=== PATIENT | male | born 1940 | race Caucasian/White ===

== ENCOUNTER → 2021-12-22 13:29 | Outpatient (BNVA) | payer MEDICARE, SELFPAY | PROVIDERS: Family Provider Nurse Practitioner Family; PCP Nurse Practitioner Family; Visit Provider Surgery | DX: Z20.822 Contact with and (suspected) exposure to COVID-19 (principal) | CPT/HCPCS: 87635 ==

== ENCOUNTER 2021-12-26 07:56 | Day surgery (SDC) | payer MEDICARE, SELFPAY ==
[2021-12-23 13:06] VITALS: BMI 22.4
[2021-12-26 08:11] VITALS: BP 166/89; PULSE 79; RESP 16; TEMP 36.3; O2SAT 96
--- NOTE | 2021-12-26 08:19 | W.PM.OPSUD ---
Surgery/Procedure H&P Update DATE OF PROCEDURE: December 26, 2021 DATE H&P PERFORMED: 12/16/21 H&P UPDATE INFORMATION: I have reviewed H&P completed within last 30 days, I have examined patient prior to procedure and No changes to prior documentation PREOP DIAGNOSIS: Bilateral inguinal hernia, umbilical hernia PLANNED PROCEDURE: Operation Date: 12/26/21 09:45 Proposed Procedures p Laparoscopic Inguinal Hernia Repair [id number]/k42.9/k40.20(Bilateral) - Jadon Monte MD s Open Umbilical Hernia Repair(Not Applicable) - Jadon Monte MD
[2021-12-26] MEDS: sodium chloride 0.9% 1,000 ML 30 ML IV (08:29)
--- NOTE | 2021-12-26 08:32 | ECG_ITS ---
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
--- NOTE | 2021-12-26 09:34 | P.MISC_ITS ---
Miscellaneous Note Purpose of Documentation: Event Note: Patient found to have undiagnosed atrial fibrillation upon EKG and palpation of pulse. Will require pre-op clearance from database marketing specialist. Instructed patient to contact his primary care physician for referral
--- NOTE | 2021-12-26 09:57 | PC.NURSE ---
Patient was in Pre-op and an EKG was obtained which found a new onset of A-fib. Dr. Monte and Dr. Linton discussed and determined it would be best to cancel the procedure until a cardiac clearance was done. Surgery clinic contacted for a cardiology referral. Patients IV was then discontinued and patient dressed and was discharged at this time.
--- NOTE | 2021-12-26 13:45 | ANE.PACU2 ---
Inpatient post-anesthesia follow up: Airway intact: Yes Vital signs: Temperature 97.3 F Pulse Rate 79 Respiratory Rate 16 Blood Pressure 166/89 Pulse Oximetry 96 Oxygen Delivery Me thod Room Air Oxygen Flow Rate Fraction of Inspir ed Oxygen Hydration adequate: Yes Nausea and vomiting: No Pain level: 1 Mental status: Baseline
== END 2021-12-26 10:04 | disposition home or self-care (01) ==
PROVIDERS: PCP Nurse Practitioner Family; Visit Provider Surgery
PROC: (CPT 49650; principal; 2021-12-26 09:45)
DX: K40.20 Bilateral inguinal hernia, without obstruction or gangrene, not specified as recurrent (principal); K42.9 Umbilical hernia without obstruction or gangrene; I48.91 Unspecified atrial fibrillation; Z53.8 Procedure and treatment not carried out for other reasons
CPT/HCPCS: 93005; J1100; J2405; J3490; J7030

== ENCOUNTER → 2022-01-18 09:44 | Outpatient (BNVA) | payer MEDICARE, SELFPAY | PROVIDERS: PCP Registered Nurse; Visit Provider Surgery | DX: Z20.822 Contact with and (suspected) exposure to COVID-19 (principal) | CPT/HCPCS: 87635 ==

== ENCOUNTER 2022-01-23 07:53 | Day surgery (SDC) | payer MEDICARE, SELFPAY ==
[2022-01-20 12:54] VITALS: BMI 20.9
[2022-01-23] VITALS (7 sets, daily range): BP systolic 124–144; BP diastolic 68–83; PULSE 67–105; RESP 8–16; TEMP 36.1–36.6; O2SAT 95–100
--- NOTE | 2022-01-23 08:54 | P.HP_ITS ---
Same Day Surgery H&P Indication for Procedure/HPI DATE OF PROCEDURE: January 23, 2022 CHIEF COMPLAINT/INDICATIONFOR SURGICAL PROCEDURE: bilateral inguinal hernia PREOP DIAGNOSIS: inguinal hernia PLANNED PROCEDURE: Operation Date: 01/23/22 09:55 Proposed Procedures p Laparoscopic Inguinal Hernia Repair [id number] x2/21370/k42.9/k40.20(Bilateral) - Jadon Monte MD s Umbilical Hernia Repair(Not Applicable) - Jadon Monte MD Medications/Allergies* Home Medications Medication Instructions Recorded Confirmed Type cholecalciferol (vitamin D3) 125 125 mcg PO DAILY 01/16/22 01/23/22 History mcg (5,000 unit) capsule ferrous sulfate 325 mg (65 mg 325 mg PO DAILY 01/16/22 01/23/22 History iron) tablet (FeroSul) Allergies/Adverse Reactions Allergy/AdvReac Type Severity Reaction Status Date / Time Penicillins Allergy Intermediate rash Verified 01/23/22 08:14 Pertinent History/Comorbid Conditions* Surgical History (Updated 12/26/21 @ 10:18 by Jadon Monte MD) H/O esophagogastroduodenoscopy History of colonoscopy 2016 Family History (Updated 12/16/21 @ 11:05 by Jennifer Luciano MA) Cancer Social History Smoking and tobacco status: never smoked Second hand smoke exposure: No Alcohol intake: never Pertinent Exam Findings alert, oriented x 3 and regular rate & rhythm Recommendations Surgery/Procedure today Coding Level of Care Code Acute 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
[2022-01-23] MEDS: sodium chloride 0.9% 1,000 ML 30 ML IV (09:00)
[2022-01-23] MEDS: vancomycin 1,000 MG in sodium chloride 0.9% 250 ML 250 MG IV (09:25)
--- NOTE | 2022-01-23 09:41 | ANES.PREANE2 ---
Pre-Anesthetic Assessment Height/Weight: Height 1.83 m Weight 70.307 kg Preop Diagnosis: inguinal hernia Operation Date: 01/23/22 09:55 Proposed Procedures p Laparoscopic Inguinal Hernia Repair [id number] x2/50622/k42.9/k40.20(Bilateral) - Jadon Monte MD s Umbilical Hernia Repair(Not Applicable) - Jadon Monte MD Familial anesthetic complications: None Was Beta Luba taken within 24 hours: N/A Was Clonidine taken within 24 hours: N/A Last intake: Intake Last Liquid Date 01/22/22 Last Liquid Time 18:00 Last Solid Date 01/22/22 Last Solid Time 18:00 Social No alcohol and No tobacco Exam alert, oriented x 3 and clear to auscultation bilaterally irregular Airway Submandibular: within normal limits Cervical ROM: within normal limits Mallampati: Class II Dentition: false CV/HEM Atrial Fibrillation and Anemia Anesthetic Plan ASA status: 3 Anesthesia: General Medications/Allergies Home Medications Medication Instructions Recorded Confirmed Last Taken Type apixaban 5 mg tablet (Eliquis) 5 mg PO BID #180 tab 01/16/22 01/23/22 Unknown Rx cholecalciferol (vitamin D3) 125 125 mcg PO DAILY 01/16/22 01/23/22 01/21/22 History mcg (5,000 unit) capsule ferrous sulfate 325 mg (65 mg 325 mg PO DAILY 01/16/22 01/23/22 01/21/22 History iron) tablet (FeroSul) hydrocodone 5 mg-acetaminophen 325 1 tab PO Q6H PRN #20 tab 01/23/22 Unknown Rx mg tablet Allergies Allergy/AdvReac Type Severity Reaction Status Date / Time Penicillins Allergy Intermediate rash Verified 01/23/22 08:14 [facility] Anesthesia Surgical History H/O esophagogastroduodenoscopy History of colonoscopy 2016 Family History Other Cancer Social History Smoking and tobacco status: never smoked Second hand smoke exposure: No Alcohol intake: never Data Anesthesia Cardiac Studies: No Data to Display
--- NOTE | 2022-01-23 13:01 | PM.OP ---
Operative Report Date of procedure: January 23, 2022 Pre-op diagnosis: Bilateral symptomatic reducible inguinal hernia, right larger than left Incarcerated umbilical hernia Post-op diagnosis: 1. Bilateral reducible indirect inguinal hernia 2. Incarcerated umbilical hernia measuring 2 cm containing omentum Procedure done: 1. Laparoscopic total extraperitoneal repair of bilateral reducible indirect inguinal hernia with Surgimax 3D mesh 2. Open primary repair of incarcerated umbilical hernia Surgeon: Jadon Monte Anesthesia: General Estimated blood loss (mL): 10 Condition: stable Disposition: PACU Procedure: The patient was taken to the operating room and intubated under general anesthesia.? After IV antibiotic was administered, the abdomen was prepped and draped in a sterile manner.? Using a 15 blade, a 1.0 cm transverse incision was made infraumbilically on the left side.? Subcutaneous tissue was divided using electrocautery and the anterior rectus sheath divided using an 11 blade.? The rectus muscle was retracted laterally and the extraperitoneal space identified.? A balloon dissector was placed in the retrorectus place and inflated under direct visualization.? A 11 mm port was placed and 15 mm of pneumoperitoneum was created.? A 10 mm 30? scope was introduced and the retrorectus space was opened using the camera up to the pubic symphysis and 5 mm ports were placed in the midline, one 2-fingerbreadths above the pubic symphysis and the other midway between these two ports under direct visualization. Blunt dissection was carried out to open up the tissue in the midline and to the pubic symphysis, which was identified. ?The dissection was then carried laterally on the left side where the iliopubic tract was identified.? There was no femoral, obturator or direct hernia noted.? The inferior epigastric artery was identified and dissection was carried posterior to it and laterally, the space was opened up to the level of the umbilicus superior to the anterior superior iliac spine.? I then proceeded to dissect out the spermatic cord and the indirect hernial sac was reduced . ?The dissection was then carried laterally on the right side where the iliopubic tract was identified.? There was no femoral, obturator or direct hernia noted.? The inferior epigastric artery was identified and dissection was carried posterior to it and laterally, the space was opened up to the level of the umbilicus superior to the anterior superior iliac spine.? I then proceeded to dissect out the spermatic cord and the indirect hernial sac was dissected free from the spermatic cord and cut with laparoscopic scissors and tied off with Vicryl Endoloop. 15 x 10cm Surgimax 3D mesh was rolled and introduced through the 10 mm port and then rolled laterally and apposed well against the abdominal wall to cover the myopectineal orifice completely on the left side and then repeated on the right side. The 2 meshes were secured in place with Securestraps.? 10 Cc of 0.5% Marcaine was infiltrated into the preperitoneal space.? The extraperitoneal space was desufflated under direct visualization to ensure no slippage of hernial sac under the mesh.? All ports were removed, through the infraumbilical incision the umbilical hernia sac was dissected free from the surrounding subcutaneous tissue and underlying fascia. The sac was opened and the incarcerated omentum was freed and reduced into the peritoneal cavity. The hernia sac was excised and the umbilical hernia was closed using [id number]-le-[id number] 0 Vicryl suture. The anterior rectus fascia at the infraumbilical port closed using figure of eight 0 Vicryl sutures, subcutaneous tissue approximated using 3-0 Vicryl sutures and skin at all three port sites were closed using running subcuticular 4-0 Monocryl sutures and Dermabond.? 10 mL of 0.5% Marcaine was infiltrated at the port sites. The patient was extubated and transferred to recovery room in stable condition.
--- NOTE | 2022-01-23 14:31 | ANE.PACU2 ---
Inpatient post-anesthesia follow up: Airway intact: Yes Vital signs: Temperature 97.4 F Pulse Rate 67 Respiratory Rate 16 Blood Pressure 124/79 Pulse Oximetry 96 Oxygen Delivery Me thod Room Air Oxygen Flow Rate 6 Fraction of Inspir ed Oxygen Hydration adequate: Yes Nausea and vomiting: No Pain level: 1 Mental status: Baseline
== END 2022-01-23 13:00 | disposition home or self-care (01) ==
PROVIDERS: PCP Registered Nurse; Visit Provider Surgery
PROC: (CPT 49650; principal; 2022-01-23 09:45)
PROC: (CPT 49587; 2022-01-23 09:45)
DX: K40.20 Bilateral inguinal hernia, without obstruction or gangrene, not specified as recurrent (principal); K42.0 Umbilical hernia with obstruction, without gangrene; I48.91 Unspecified atrial fibrillation
CPT/HCPCS: 49587; 49650; C1781; J1100; J2405; J2704; J3010; J3370; J3490; J7030; J7050

== ENCOUNTER 2022-03-02 13:44 | Outpatient (CLI) | payer MEDICARE, SELFPAY ==
--- NOTE | 2022-03-02 13:30 | USCV_ITS ---
Humble Hewitt Age: 81 Gender: M : 1940 Exam Date: 03/02/2022 13:51 Ordering Phys: Servando Bah M.D ([email or web address]) Technologist: Exam Location[place] [facility] [place]: chest pain BP: 134 / 74 HR: 65 Rhythm: Sinus Technical Quality: Adequate MEASUREMENTS (Male / Female) Normal Values 2D ECHO LV Diastolic Diameter PLAX 5.3 cm 4.2 - 5.9 / 3.9 - 5.3 cm LV Systolic Diameter PLAX 3.9 cm IVS Diastolic Thickness 1.0 cm 0.6 - 1.0 / 0.6 - 0.9 cm IVS Systolic Thickness 1.6 cm LVPW Diastolic Thickness 1.3 cm 0.6 - 1.0 / 0.6 - 0.9 cm LVPW Systolic Thickness 1.4 cm LVOT Diameter 2.0 cm LV Ejection Fraction 2D Teich 52.5 % LV Ejection Fraction MOD 2C 66.8 % LV Ejection Fraction 2C AL 69.6 % LA Diameter 4.4 cm M-MODE Aortic Annulus Diameter 3.5 cm LA Ao Ratio MM 1.5 MV E Point Septal Separation 1.6 cm DOPPLER AV Peak Velocity 246.0 cm/s LVOT Peak Velocity 70.0 cm/s AV Area Cont Eq vti 0.9 cm squared AV Area Cont Eq pk 0.9 cm squared MV Area PHT 4.6 cm squared Mitral E to A Ratio 2.4 MV E' Velocity 46.5 cm/s Mitral E to MV E' Ratio 7.0 Mitral E to LV E' Lateral Ratio 5.8 Mitral E to LV E' Septal Ratio 8.8 TR Peak Velocity 276.0 cm/s TR Peak Gradient 30.5 mmHg Right Atrial Pressure 3.0 mmHg Pulmonary Artery Systolic Pressu 33.5 mmHg PV Peak Velocity 94.0 cm/s FINDINGS Left Ventricle Normal left ventricular size. LV systolic function is borderline normal with EF of 50-55%. No regional wall motion abnormalities. Diastolic function is indeterminate because of atrial fibrillation Right Ventricle The right ventricle is normal in size and function. Right Atrium The right atrium is normal in size. Left Atrium The left atrium is mildly dilated Mitral Valve Thickened mitral valve without significant stenosis or prolapse. There is mild mitral regurgitation. Aortic Valve Aortic valve is thickened. Mild aortic stenosis with mean gradient of 10.3mmHg. There is mild aortic regurgitation. Tricuspid Valve Structurally normal tricuspid valve without significant stenosis. Mild Tricuspid regurgitation. Pulmonary artery systolic pressure is normal. Pulmonic Valve Structurally normal pulmonic valve without significant stenosis. There is mild pulmonic regurgitation. Pericardium Normal pericardium without effusion. Aorta Normal ascending aorta dimension. CONCLUSIONS LV systolic function is borderline normal with EF of 50-55% Diastolic function is indeterminate because of atrial fibrillation The left atrium is mildly dilated Thickened mitral valve without significant stenosis or prolapse. There is mild mitral regurgitation. Aortic valve is thickened. Mild aortic stenosis with mean gradient of 10.3mmHg. There is mild aortic regurgitation. Mild pulmonic regurgitation No comparison studies are available Servando Bah MD (Electronically Signed) Final Date: 11 March 2022 16:49 S
== END 2022-03-02 13:45 | disposition home or self-care (01) ==
LOC: RAD 13:46
PROVIDERS: PCP Registered Nurse; Visit Provider Internal Medicine
DX: R06.02 Shortness of breath (principal); R07.9 Chest pain, unspecified; I08.0 Rheumatic disorders of both mitral and aortic valves
CPT/HCPCS: 93306

== ENCOUNTER → 2022-03-27 11:00 | Outpatient (BNVA) | payer MEDICARE, SELFPAY | PROVIDERS: PCP Registered Nurse; Visit Provider Registered Nurse | DX: R06.02 Shortness of breath (principal); R53.83 Other fatigue | CPT/HCPCS: 80053; 82306; 82607; 85025 ==

== ENCOUNTER → 2022-04-12 13:36 | Outpatient (BNVA) | payer MEDICARE, SELFPAY | PROVIDERS: PCP Registered Nurse; Visit Provider Nurse Practitioner Family | DX: I48.91 Unspecified atrial fibrillation (principal); I49.1 Atrial premature depolarization; I49.3 Ventricular premature depolarization | CPT/HCPCS: 93005; 93229; 99214 ==

== ENCOUNTER → 2022-07-03 09:39 | Outpatient (BNVA) | payer MEDICARE, SELFPAY | PROVIDERS: PCP Registered Nurse; Visit Provider Registered Nurse | DX: R06.02 Shortness of breath (principal); E55.9 Vitamin D deficiency, unspecified; I10 Essential (primary) hypertension | CPT/HCPCS: 80053; 82306; 83880; 84153; 84443; 85025 ==

== ENCOUNTER → 2022-07-04 09:39 | Outpatient (BNVA) | payer MEDICARE, SELFPAY | PROVIDERS: PCP Registered Nurse; Visit Provider Registered Nurse | DX: R06.02 Shortness of breath (principal); E55.9 Vitamin D deficiency, unspecified; I10 Essential (primary) hypertension; I48.91 Unspecified atrial fibrillation; K92.1 Melena; R63.4 Abnormal weight loss; J90 Pleural effusion, not elsewhere classified | CPT/HCPCS: 80076; 85651; 86141 ==

== ENCOUNTER → 2022-07-07 08:52 | Outpatient (BNVA) | payer MEDICARE, SELFPAY | PROVIDERS: PCP Registered Nurse; Visit Provider Internal Medicine | DX: I48.91 Unspecified atrial fibrillation (principal); Z79.01 Long term (current) use of anticoagulants; R06.02 Shortness of breath | CPT/HCPCS: 99213; 99214 ==

== ENCOUNTER → 2022-07-18 09:00 | Outpatient (BNVA) | payer MEDICARE, SELFPAY | PROVIDERS: PCP Registered Nurse; Visit Provider Registered Nurse | DX: E87.6 Hypokalemia (principal); E55.9 Vitamin D deficiency, unspecified | CPT/HCPCS: 80048 ==

== ENCOUNTER 2022-08-08 11:49 | Outpatient (CLI) | payer MEDICARE, SELFPAY ==
--- NOTE | 2022-08-08 12:04 | CT_ITS ---
WS: [id number] CT CHEST, ABDOMEN AND PELVIS WITHOUT CONTRAST HISTORY: R63.4 - Abnormal weight loss TECHNIQUE: Contiguous 5 mm axial imaging performed through the chest, abdomen and pelvis without IV c ontrast, oral contrast has not been provided. Coronal and sagittal reformats chest. Coronal and sagit dameon reformats through the abdomen and pelvis. All CT scans at [facility] use at least one of these dose optimization techniques: automated exposure control; mA and/or kV adjustment per patient s ize (includes targeted exams where dose is matched to clinical indication); or iterative reconstructi on. CONTRAST: None DLP: 1066.32 mGy.cm COMPARISON: None available. Chest CT: Small bilateral layering pleural effusions. There is a small right-sided hydropneumothorax. Soft tissue nodule along the RIGHT diaphragmatic surface of the middle lobe. This nodule abuts the p leura measuring 2.6 x 1.5 x 2.8 cm. Additional bilateral compressive atelectasis at the lung bases. T here is very slight nodularity along the surface of the LEFT lower lobe atelectasis. Mild atherosclerosis aorta. Small mediastinal and hilar lymph nodes. Mild cardiac enlargement. Abdomen CT: Liver and pancreas and spleen are negative. Normal gallbladder. Normal adrenal glands. No renal obstruction. Nonobstructing 2 to 3 mm calcifications in the renal pelves. Mild atherosclerosis aorta. Stomach is moderately well distended with fluid and food products. Mild thickening of the duodenal C- loop. No small bowel obstruction. No colon obstruction. The appendix is normal. Mild rectal wall thic kening. There is free fluid in the pelvis which is abnormal in a male patient. Small central mesenteric lymph nodes. There is mild tethering within the central mesentery. Small lym ph nodes extend into the RIGHT lower quadrant. Largest lymph nodes measure up to 10 mm in diameter. Pelvic CT: Small amount of free fluid in the pelvis. Urinary bladder is not distended. There is mild diffuse bladder wall thickening. Partial fusion of the SI joints. No destructive bone lesions. CT/[place] [id number] IMPRESSION: 1. Small RIGHT hydropneumothorax. 2. Small bilateral pleural effusions. 3. Possible soft tissue mass in the RIGHT middle lobe abutting the pleural andi face measuring 2.6 x 1.5 x 2.8 cm. 4. Small amount of free fluid in the pelvis, abnormal in a male patient. 5. Small central mesenteric lymph nodes. Early metastatic adenopathy not exclu ded. 6. This examination lacks sensitivity and specificity without oral and IV cont rast. 7. Mild thickening of the duodenal C-loop and mild thickening of the rectum. S uggest additional evaluation by endoscopy. 8. Cardiomegaly. Notified KURTIS Valdez at 08/09/2022 9:41 AM.
--- NOTE | 2022-08-08 13:15 | USCV_ITS ---
Humble Cordero Age: 81 Gender: M : 1940 Exam Date: 08/08/2022 12:17 Ordering Phys: Servando Bah M.D ([email or web address]) Technologist: Exam Location: [facility] [place] Indication: aortic stenosis BP: 123 / 75 HR: 66 Rhythm: Sinus Technical Quality: Adequate MEASUREMENTS (Male / Female) Normal Values 2D ECHO LV Diastolic Diameter PLAX 4.5 cm 4.2 - 5.9 / 3.9 - 5.3 cm LV Systolic Diameter PLAX 3.3 cm IVS Diastolic Thickness 1.0 cm 0.6 - 1.0 / 0.6 - 0.9 cm IVS Systolic Thickness 1.6 cm LVPW Diastolic Thickness 1.2 cm 0.6 - 1.0 / 0.6 - 0.9 cm LVPW Systolic Thickness 1.5 cm LVOT Diameter 2.1 cm LV Ejection Fraction 2D Teich 54.2 % LV Ejection Fraction MOD 2C 59.4 % LV Ejection Fraction 2C AL 59.2 % LA Diameter 5.1 cm M-MODE RV Diastolic Diameter MM 1.6 cm Aortic Annulus Diameter 3.8 cm LA Ao Ratio MM 1.5 MV E Point Septal Separation 0.7 cm DOPPLER AV Peak Velocity 205.0 cm/s LVOT Peak Velocity 69.0 cm/s AV Area Cont Eq vti 1.2 cm squared AV Area Cont Eq pk 1.2 cm squared MV Area PHT 4.1 cm squared Mitral E to A Ratio 2.0 MV E' Velocity 36.0 cm/s Mitral E to MV E' Ratio 18.9 Mitral E to LV E' Lateral Ratio 15.8 Mitral E to LV E' Septal Ratio 24.3 TR Peak Velocity 234.7 cm/s TR Peak Gradient 22.0 mmHg TV Peak E Velocity 102.0 cm/s Right Atrial Pressure 3.0 mmHg Pulmonary Artery Systolic Pressu 25.0 mmHg RV Acceleration Time 0.1 s FINDINGS Left Ventricle Left ventricle is normal in size. LV systolic function is normal with EF of 50-55%. No regional wall motion abnormalities are seen. Right Ventricle Normal in size and function Right Atrium Normal in size Left Atrium Dilated Mitral Valve Thickened aortic valve. Mild mitral regurgitation Aortic Valve Aortic valve is thickened. Mild aortic stenosis with aortic valve area of 1.16cm2 with mean gradient of 7.7mmHg. Mild aortic regurgitation Tricuspid Valve Tricuspid valve is structurally normal. Mild tricuspid regurgitation. RVSP is 30 to 35 mmHg. Pulmonary artery systolic pressure is normal Pulmonic Valve Grossly normal. Mild pulmonic regurgitation Pericardium Normal Aorta Normal in size IVC CONCLUSIONS LV systolic function is normal with EF of 50-55% Left atrial dilation. Mild mitral regurgitation Mild aortic stenosis with aortic valve area of 1.16cm2 with mean gradient of 7.7mmHg. Mild aortic regurgitation Mild pulmonic regurgitation. Compared to prior echocardiogram from 03/02/2022, no signifnicat changes are seen Servando Bah MD (Electronically Signed) Final Date: 19 August 2022 22:46 S
== END 2022-08-08 11:50 | disposition home or self-care (01) ==
LOC: RAD 11:50
PROVIDERS: PCP Registered Nurse; Visit Provider Internal Medicine
DX: I08.0 Rheumatic disorders of both mitral and aortic valves (principal); R06.02 Shortness of breath; R63.4 Abnormal weight loss; J94.2 Hemothorax; J90 Pleural effusion, not elsewhere classified; I51.7 Cardiomegaly
CPT/HCPCS: 71250; 74176; 93306

== ENCOUNTER 2022-08-09 13:53 | Observation (INO) | payer MEDICARE, SELFPAY ==
[2022-08-09 14:21] VITALS: BP 120/66; PULSE 80; RESP 14; TEMP 36.6; O2SAT 97; BMI 18.1
[2022-08-09 15:35] LABS: Basophils # 0.1 10^3/uL (0.0-0.1); Basophils % 1.3 %; Eosinophils # 0.3 10^3/uL (0.0-0.8); Eosinophils % 7.2 %; Hematocrit 38.4 % (42.0-52.0); Hemoglobin 12.2 g/dL (11.7-16.6); Lymphocytes # 0.9 10^3/uL (0.8-4.8); Lymphocytes % 20.9 %; Mean Corpuscular HGB Conc 31.8 g/dL (30.0-36.0); Mean Corpuscular Hemoglobin 30.5 pg (28.0-34.0); Monocytes # 0.5 10^3/uL (0.2-0.9); Monocytes % 11.9 %; Neutrophils # 2.58 10^3/uL (1.8-7.7); Nucleated Red Blood Cells % 0 %; Platelet Count 258 10^3/cmm (130-400); Red Cell Distribution Width 14.2 % (12.1-15.1); White Blood Count 4.5 10^3/uL (4.0-10.0)
[2022-08-09 15:59] LABS: Alanine Aminotransferase < 5 U/L (0-41); Albumin Level 2.9 g/dL (3.5-5.2); Alkaline Phosphatase 60 U/L (40-130); Aspartate Amino Transferase 12 U/L (0-40); Blood Urea Nitrogen 20 mg/dL (8-23); Calcium 8.3 mg/dL (8.5-10.5); Carbon Dioxide 29 mmol/L (22-29); Chloride 103 mmol/L (98-107); Globulin 3.2 g/dL (1.3-4.6); Glucose 88 mg/dL (65-115); Osmolality Calculated 290 mOsm/kg (285-295); Sodium 139 mmol/L (136-145); Total Bilirubin 0.2 mg/dL (0.15-1.2); Total Protein 6.1 g/dL (6.6-8.7)
--- NOTE | 2022-08-09 16:22 | W.ED.SOB ---
HPI - SOB/Dyspnea General: Chief Complaint: Shortness of Breath/Dyspnea Stated Complaint: Dr. Rivas asked to come back Time Seen by Provider: 08/09/22 14:11 Source: patient Mode of arrival: ambulatory History of Present Illness: HPI Narrative: He 1-year-old male presents emergency room complaining shortness of breath he said this progressively worsening for the last several weeks he seen a midlevel in an outlying clinic worked up eventually a CT was done that shows a large effusion on the right with a small pneumothorax. Patient was asked to come to the emergency room. Additionally there was a mass present suspicious for cancer. Patient is mildly short of breath with exertion denies any chest pain. Nonproductive cough he is not on Eliquis for atrial fibrillation. MD elicited complaint: shortness of breath and cough Pertinent past history: COPD Onset (ago): week(s) Timing: constant Severity: moderate Exacerbating factors: nothing Relieving factors: nothing Known history of: COPD Associated symptoms: Deny abdominal pain, chest congestion, chest pain, cough, diaphoresis, dizziness, extremity pain, fever(s), hemoptysis, lightheadedness, myalgias, nausea, orthopnea, palpitations, paresthesias, polydipsia, polyuria, rash, sense of impending doom, syncope or vomiting Treatment prior to arrival: none Review of Systems Const: Denies: fever(s), chills, fatigue, malaise or diaphoresis ENMT: Denies: throat pain, ear or mastoid pain, nasal discharge or nasal congestion Card: Denies: chest pain, palpitations, lightheadedness, syncope or orthopnea Resp: Reports: dyspnea and productive cough; Denies: hemoptysis or chest congestion GI: Denies: abdominal pain, nausea or vomiting : Denies: flank pain, difficulty urinating, dysuria, urinary frequency or urinary urgency Musc: Denies: extremity pain Skin/Breast: Denies: rash or pruritus Neuro: Denies: dizziness Endo: Denies: polyuria or polydipsia PFS ED PFSH: Medical History Atrial fibrillation with slow ventricular response B12 deficiency Bilateral inguinal hernia Umbilical hernia Surgical History H/O esophagogastroduodenoscopy History of colonoscopy 2016 History of umbilical hernia repair (01/23/22) S/P bilateral inguinal hernia repair (01/23/22) Laparoscopic Family History Other Cancer Social History Smoking and tobacco status: never smoked Second hand smoke exposure: No Alcohol intake: never Physical Exam Const: GENERAL APPEARANCE: cooperative and comfortable ORIENTATION/CONSCIOUSNESS: Yes awake, Yes oriented to person, Yes oriented to place and Yes oriented to time HENMT: COMMON NORMALS: normocephalic, atraumatic and hearing grossly normal bilaterally HEAD & SCALP: normocephalic and atraumatic Lymph: LYMPHATIC: no lymphadenopathy noted and no lymphedema noted Resp: AUSCULTATION: rhonchi, wheezes and diminished lung sounds on the right in the lower lung mahajan Cardio: COMMON NORMALS: regular rate, regular rhythm and No murmurs present (Cardio) RATE: regular rate RHYTHM: regular rhythm GI: COMMON NORMALS: Soft to palpation and No hepatosplenomegaly present AUSCULTATION: Yes normoactive bowel sounds PALPATION: Yes Soft to palpation, No Tenderness to palpation present (GI), No Guarding due to palpation present (GI) and Yes No hepatosplenomegaly present Extremity: COMMON NORMALS: normal to inspection, capillary refill normal, no clubbing, cyanosis or edema, no calf tenderness and no pedal edema Neuro: SENSORIUM/ORIENTATION: Yes oriented to person, Yes oriented to place and Yes oriented to time Skin: COMMON NORMALS: no rashes or lesions noted GENERAL SKIN EXAM: no rashes or lesions noted Course Vital Signs: Vital signs: Vital Signs Temperature 97.9 F 08/09/22 14:21 Pulse Rate 72 08/09/22 17:08 Respiratory Rate 15 08/09/22 17:08 Blood Pressure 146/89 08/09/22 17:08 Pulse Oximetry 100 08/09/22 17:08 Oxygen Delivery Me thod 08/09/22 17:08 MDM - SOB/Dyspnea Medical Decision Making Patient has a lot of right lung mass with pleural effusion and a small pneumothorax he is on Eliquis. Discussed with Dr. Lazo he recommends admission with hospitalist and he will consult for thoracentesis to reexpand the lung and analyze fluid. Medical Records I reviewed the patient's medical records. Lab Data I reviewed the patient's lab results. : 08/09/22 15:08/09/22 15: Labs/Radiology: Laboratory Results WBC 4.5 10^3/uL (4.0-10.0) 08/09/22 15: RBC 4.00 10^6/uL (4.1-5.3) L 08/09/22 15: Hgb 12.2 g/dL (11.7-16.6) 08/09/22 15: Hct 38.4 % (42.0-52.0) L 08/09/22: MCV 96.0 fl (80-94) H 08/09/22: MCH 30.5 pg (28.0-34.0) 08/09/22: MCHC 31.8 g/dL (30.0-36.0) 08/09/22: RDW 14.2 % (12.1-15.1) 08/09/22: Plt Count 258 10^3/cmm (130-400) 08/09/22: MPV 10.0 fL (7.4-10.4) 08/09/22: Neut % (Auto) 58.0 % 08/09/22: Lymph % (Auto) 20.9 % 08/09/22: [place] % (Auto) 11.9 % 08/09/22: Eos % (Auto) 7.2 % 08/09/22: Baso % (Auto) 1.3 % 08/09/22: Neut # (Auto) 2.58 10^3/uL (1.8-7.7) 08/09/22: Lymph # (Auto) 0.9 10^3/uL (0.8-4.8) 08/09/22: [place] # (Auto) 0.5 10^3/uL (0.2-0.9) 08/09/22 15: Eos # (Auto) 0.3 10^3/uL (0.0-0.8) 08/09/22: Baso # (Auto) 0.1 10^3/uL (0.0-0.1) 08/09/22 15:23 Nucleated RBC % (auto) 0 % 08/09/22 15: Nucleated RBCs # 0.0 /100WBC 08/09/22 15:23 Specimen Type Arterial 08/09/22 17:03 Sample Site Brachial, right 08/09/22 17:03 ABG pH 7.43 (7.35-7.45) 08/09/22 17:03 ABG pCO2 41.1 mmHg (35-45) 08/09/22 17:03 ABG pO2 90.7 mmHg (80.0-100.0) 08/09/22 17:03 ABG HCO3 27.4 mmol/L (22-26) H 08/09/22 17:03 ABG O2 Saturation 97.8 08/09/22 17:03 ABG Base Excess 2.8 mmol/L (-2.0-2.0) H 08/09/22 17:03 Jeet Test N/a 08/09/22 17:03 A-a O2 Gradient 1.1 mmHg (5-10) L 08/09/22 17:03 Hematocrit 35.4 % (42-52) L 08/09/22 17:03 Hgb O2 Saturation 96.7 % (95-100) 08/09/22 17:03 Carboxyhemoglobin < 1.0 %THgb (0.4-20.1) 08/09/22 17:03 Methemoglobin 0.4 % (0.4-1.5) 08/09/22 17:03 Total Hemoglobin 11.5 g/dL (14-18) L 08/09/22 17:03 Sodium 140.0 mmol/L (131-143) 08/09/22 17:03 Potassium 3.5 mmol/L (3.5-5.0) 08/09/22 17:03 Glucose 87.0 mg/dL (70-115) 08/09/22 17:03 Ionized Calcium 1.1 mmol/L (1.1-1.4) 08/09/22 17:03 O2 Delivery Device Room air 08/09/22 17:03 FiO2 21.0 % 08/09/22 17:03 Top Frame Fitter ID Ed 08/09/22 17:03 Sodium 139 mmol/L (136-145) 08/09/22 15:23 Potassium 4.0 mmol/L (3.5-5.1) 08/09/22 15:23 Chloride 103 mmol/L (98-107) 08/09/22 15:23 Carbon Dioxide 29 mmol/L (22-29) 08/09/22 15:23 Anion Gap 11.0 (5-19) 08/09/22 15:23 BUN 20 mg/dL (8-23) 08/09/22 15:23 Creatinine 1.2 mg/dL (0.7-1.2) 08/09/22 15:23 GFR Calculation Not Reportable 08/09/22 15:23 Glucose 88 mg/dL (65-115) 08/09/22 15:23 Calculated Osmolality 290 mOsm/kg (285-295) 08/09/22 15:23 Calcium 8.3 mg/dL (8.5-10.5) L 08/09/22 15:23 Total Bilirubin 0.2 mg/dL (0.15-1.2) 08/09/22 15:23 AST 12 U/L (0-40) 08/09/22 15:23 ALT < 5 U/L (0-41) 08/09/22 15:23 Alkaline Phosphatase 60 U/L (40-130) 08/09/22 15:23 Total Protein 6.1 g/dL (6.6-8.7) L 08/09/22 15:23 Albumin 2.9 g/dL (3.5-5.2) L 08/09/22 15:23 Globulin 3.2 g/dL (1.3-4.6) 08/09/22 15:23 Discharge Plan Discharge Patient Disposition: Admitted As Inpatient Clinical Impression: Pleural effusion, Mass of left lung Condition: Stable Coding Level of Care Code ED Water Aerobics Instructor for Chg Fwd Exam Comprehensive
[2022-08-09 17:08] VITALS: BP 146/89; PULSE 72; RESP 15; O2SAT 100
[2022-08-09 17:13] LABS: ABG PCO2 41.1 mmHg (35-45); ABG PH Result 7.43 (7.35-7.45); Alveolar-Arterial Oxygen Gradi 1.1 mmHg (5-10); Arterial Blood Gas Hematocrit 35.4 % (42-52); Base Excess ABG 2.8 mmol/L (-2.0-2.0); Blood Gas Operator Identificat ED; Blood Gas Sample Site Brachial, right; Blood Gas Sample Type Arterial; Carboxyhemoglobin < 1.0 %THgb (0.4-20.1); HCO3 ABG 27.4 mmol/L (22-26); HGB O2 Sat 96.7 % (95-100); Ionized Calcium Level - ABG 1.1 mmol/L (1.1-1.4); Methemoglobin 0.4 % (0.4-1.5); Oxygen Device ROOM AIR; Oxygen Saturation ABG 97.8; PO2 ABG 90.7 mmHg (80.0-100.0); Potassium Level - ABG 3.5 mmol/L (3.5-5.0); Total Hemoglobin 11.5 g/dL (14-18)
--- NOTE | 2022-08-09 18:37 | P.HP_ITS ---
Providers/Chief Complaint Primary Care Provider: KURTIS Valdez Chief Complaint: Dr. Rivas asked to come back History of Present Illness Pleasant 81-year-old gentleman with progressive dyspnea was asked to proceed to ER after CT imaging of the chest revealed hydropneumothorax, small in size on the right side, small bilateral pleural effusions, possible soft tissue mass and right middle lobe abutting the pleural surface measuring 2.6 x 1.5 x 2.8 cm. Small amount of free fluid in the pelvis, abnormal male patient. Small central mesenteric lymph nodes. Early metastatic adenopathy not excluded. Examination lacking sensitivity and specificity without oral and IV contrast. Mild thickening of duodenal C-loop and mild thickening of rectum. Additional evaluation by endoscopy suggested. Cardiomegaly. He reports he had a colonoscopy probably about 6 years ago. Denies any recent falls. Review of Systems Const: Denies: fever(s), chills, body aches or malaise Eyes: Denies: change in vision, eye discomfort or eye redness ENMT: Denies: throat pain, oral sores or ear or mastoid pain Card: Denies: chest pain, edema, pre-syncope or dyspnea on exertion Resp: Reports: dyspnea; Denies: productive cough, change in phlegm color or hemoptysis GI: Denies: abdominal pain, nausea, vomiting, diarrhea, constipation, hematochezia or melena : Denies: flank pain, difficulty urinating, urinary frequency or hematuria Musc: Denies: back pain, joint swelling or joint redness Skin/Breast: Denies: rash or new lesions Neuro: Denies: headache(s), numbness in extremities, weakness in extremities, dizziness, confusion or seizure-like activity Endo: Denies: polyuria or polydipsia R[place]ino/Lymph: Denies: easy bleeding or tender lymph nodes All/Imm: Denies: urticaria or tongue swelling Medications/Allergies Home Medications Medication Instructions Recorded Confirmed Last Taken Type ferrous sulfate 325 mg (65 mg 325 mg PO DAILY 01/16/22 08/09/22 01/21/22 History iron) tablet (FeroSul) vitamin B complex (B 1 tab PO DAILY 90 days #90 tabs 03/29/22 08/09/22 08/09/22 Rx Complex-Vitamin B12) cholecalciferol (vitamin D3) 1,250 50,000 unit PO .once a week 90 06/29/22 08/09/22 08/07/22 Rx mcg (50,000 unit) capsule days #12 caps furosemide 40 mg tablet 40 mg PO DAILY 07/07/22 08/09/22 08/09/22 History apixaban 5 mg tablet (Eliquis) 5 mg PO DAILY 08/09/22 08/09/22 08/09/22 History docusate sodium 100 mg capsule 100 mg PO DAILY 08/09/22 08/09/22 08/09/22 History (Colace) Allergies Allergy/AdvReac Type Severity Reaction Status Date / Time Penicillins Allergy Intermediate rash Verified 08/09/22 16:18 PFSH Acute PFSH: Medical History Atrial fibrillation with slow ventricular response B12 deficiency Bilateral inguinal hernia Umbilical hernia Surgical History H/O esophagogastroduodenoscopy History of colonoscopy 2016 History of umbilical hernia repair (01/23/22) S/P bilateral inguinal hernia repair (01/23/22) Laparoscopic Family History Other Cancer Social History Smoking and tobacco status: never smoked Second hand smoke exposure: No Alcohol intake: never Substance/Drug Use: never Vitals/I&O/Wt Last Vital Signs Temp 97.9 F 08/09/22 14:21 Pulse 72 08/09/22 17:08 Resp 15 08/09/22 17:08 BP 146/89 08/09/22 17:08 Pulse Ox 100 08/09/22 17:08 O2 Del Method 08/09/22 17:08 Weight last 48 hrs Weight 58.967 kg Physical Exam Const: COMMON NORMALS: patient oriented x3 and alert GENERAL APPEARANCE: cooperative ORIENTATION/CONSCIOUSNESS: Yes awake HENMT: COMMON NORMALS: oropharynx normal Neck/C-Spine: COMMON NORMALS: no JVD Resp: COMMON NORMALS: normal respiratory effort and clear to auscultation bilaterally AUSCULTATION: clear to auscultation bilaterally Cardio: COMMON NORMALS: no JVD, regular rhythm, S1 normal heart sound present, S2 normal heart sound present and No murmurs present (Cardio) RHYTHM: regular rhythm HEART SOUNDS: S1 normal heart sound present and S2 normal heart sound present GI: COMMON NORMALS: Normal to inspection, nondistended, normoactive bowel sounds present, Soft to palpation and non-tender PALPATION: Yes Soft to palpation Extremity: COMMON NORMALS: no joint enlargement and no pedal edema Neuro: COMMON NORMALS: patient oriented x3 and moves all extremities SENSORIUM/ORIENTATION: Yes alert Skin: COMMON NORMALS: no rashes or lesions noted GENERAL SKIN EXAM: no rashes or lesions noted Data : 08/09/22 15:23 08/09/22 15:23 A&P Assessment and plan (1) Hydropneumothorax: Hold Eliquis. Monitor oxygenation. Appreciate pulmonary consultation, consideration of thoracentesis. Oxygen support as needed. Currently no sign of infection. Monitor for any change. Status: Acute (2) Mass of middle lobe of right lung: Discussed with patient. Plan is for thoracentesis, further fluid assessment. Otherwise may require biopsy. Unclear etiology of mass, other suspicious findings with mesenteric lymphadenopathy, small ascites, noted also thickening duodenum, rectum. Status: Acute (3) Ascites: Incidentally noted small ascites on CT. Status: Acute (4) Mesenteric lymphadenopathy: Unclear etiology, early metastatic disease not excluded. Additional work-up of lung mass, effusion as above. Status: Acute (5) Mural thickening of small intestine: Denies any abdominal pain or discomfort. No nausea. No vomiting. May benefit from endoscopic evaluation. Eliquis on hold. PPI. Status: Acute (6) Abnormality of rectum: Thickening of the rectum noted. He states had a colonoscopy about 6 years ago. May benefit from endoscopic evaluation given other findings. Hold Eliquis. Status: Acute (7) Cardiomegaly: Reported by CT. Echocardiogram in February of this year with borderline normal ejection fraction, diastolic function indeterminate with atrial fibrillation. LA mildly dilated. Thickened MV. Mild MVR. Thickened AV. Mild . Mild AVR. Mild PVR. Currently does not appear to be in decompensated congestive heart failure. Status: Acute Plan A. fib: Hold Eliquis Attestations Medical Necessity Statement*: Admission of over 2 midnights anticipated for assessment of management of hydropneumothorax, pulmonary mass, and gentleman with other incidental concerning findings. Coding Level of Care Code Acute Timing Adjuster for Chg Fwd Exam Comprehensive Diagnoses Hydropneumothorax J94.8 Mass of middle lobe of right lung R91.8 Ascites R18.8 Mesenteric lymphadenopathy R59.0 Mural thickening of small intestine K63.9 Abnormality of rectum K62.9 Cardiomegaly I51.7
[2022-08-09 19:00] VITALS: BP 100/75; PULSE 69; RESP 16; O2SAT 98
[2022-08-09 19:08] LABS: Add Urine Microscopic? NO; Charge for UA Resulting for Rev
[2022-08-09 19:22] LABS: Bilirubin Urine Neg (Negative); Blood Urine Neg (Negative); Glucose Urine UA Norm (Normal); Ketones Urine Negative (Negative); Leukocyte Esterase Urine Negative (Negative); Nitrate Urine Negative (Negative); Protein Urine Neg (Negative); Urine Appearance Clear (CLEAR); Urine Color Colorless (Yellow); Urobilinogen Urine Neg (Negative); pH Urine 5 (5-7)
[2022-08-09 21:05] VITALS: BP 120/79; PULSE 65; RESP 17; O2SAT 99
--- NOTE | 2022-08-09 21:07 | PC.NURSE ---
PATIENT LYING IN BED. NO NEEDS AT THIS TIME.
[2022-08-09] MEDS: pantoprazole DR 40 mg Tablet PO (23:55)
[2022-08-09 23:56] VITALS: BP 128/72; PULSE 78; RESP 16; O2SAT 97
--- NOTE | 2022-08-09 23:57 | PC.NURSE ---
PATIENT IN BED AND COMFORTABLE. NO FURTHER NEEDS AT THIS TIME.
--- NOTE | 2022-08-10 00:22 | PC.NURSE ---
REPORT GIVEN TO YARI ABREU.
[2022-08-10 02:45] VITALS: BP 115/61; PULSE 60; RESP 16; O2SAT 98
[2022-08-10 04:07] VITALS: BP 112/64; PULSE 57; RESP 16; O2SAT 95
--- NOTE | 2022-08-10 06:01 | P.CONIM_ITS ---
Providers/Reason For Consult Consulting Physician/Specialty*: Sky Lazo MD/ Pulmonary Critical Care Reason for Consult*: right hydropneumothorax Requesting Physician: Dr. Rivas Attending Physician: Jayce Teresa Primary Care Provider: KURTIS Valdez History of Present Illness History of Present Illness Humble Hewitt is a 81 year old male who today sent diagnosis of atrial fibrillation on Eliquis, had a recent hernia repair,Has been having persistent shortness of breath for last few months. Reported unintentional weight loss, quantified as about 125 pounds over last 2 to 3 years, partly because of decreased intake due to dental issues. However reported that food does not taste good and has some loss of appetite as well. His last CV echo 03/02/2022 reported as LV systolic function borderline normal with EF 50 to 55%. Diastolic function indeterminate because of atrial fibrillation. Left atrium is mildly dilated. Aortic valve is thickened. Mild aortic stenosis with mean gradient 10. There is mild aortic regurgitation and mild pulmonic regurgitation. Patient had a CT chest on 08/09/2022 for his worsening exertional shortness of breath which reported a small right hydropneumothorax with bilateral pleural effusions and possible soft tissue mass in the right middle lobe abutting the pleural surface measuring 2.6 x 1.5 x 2.8 cm. Also noted small amount of free fluid in the pelvis, small central mesenteric lymph nodes, mild thickening of duodenal C-loop and mild thickening of the rectum. Primary care physician consulted me over phone regarding patient's right hydropneumothorax. I have recommended patient to come to ER for further evaluation. In the ER frandy, patient was seen at bedside He endorses a weight loss, loss of appetite, dyspnea on exertion which has been gradually worsening, but denied chest pain, nausea, vomiting, diarrhea, abdominal pain, headaches, dizziness. Denied any bleeding episodes. Medications/Allergies Home Medications Medication Instructions Recorded Confirmed Last Taken Type ferrous sulfate 325 mg (65 mg 325 mg PO DAILY 01/16/22 08/09/22 01/21/22 History iron) tablet (FeroSul) vitamin B complex (B 1 tab PO DAILY 90 days #90 tabs 03/29/22 08/09/22 08/09/22 Rx Complex-Vitamin B12) cholecalciferol (vitamin D3) 1,250 50,000 unit PO .once a week 90 06/29/22 0 08/09/22 08/07/22 Rx mcg (50,000 unit) capsule days #12 caps furosemide 40 mg tablet 40 mg PO DAILY 07/07/22 08/09/22 08/09/22 History apixaban 5 mg tablet (Eliquis) 5 mg PO DAILY 08/09/22 08/09/22 08/09/22 History docusate sodium 100 mg capsule 100 mg PO DAILY 08/09/22 08/09/22 08/09/22 H istory (Colace) Allergies Allergy/AdvReac Type Severity Reaction Status Date / Time Penicillins Allergy Intermediate rash Verified 08/09/22 16:18 Current Medications Generic Name Dose Route Start Last Admin Trade Name Anette PRN Reason Stop Dose Admin Pantoprazole Sodium 40 mg 08/09/22 23:28 08/09/22 23:[address] 40 Mg Tablet PO 40 mg DAILY PRICILLA Administration PFSH Acute PFSH: Medical History Atrial fibrillation with slow ventricular response B12 deficiency Bilateral inguinal hernia Umbilical hernia Surgical History H/O esophagogastroduodenoscopy History of colonoscopy 2016 History of umbilical hernia repair (01/23/22) S/P bilateral inguinal hernia repair (01/23/22) Laparoscopic Family History Other Cancer Social History Smoking and tobacco status: never smoked Second hand smoke exposure: No Alcohol intake: never Substance/Drug Use: never Vitals/I&O/Wt Last Vital Signs Temp 97.9 F 08/09/22 14:21 Pulse 57 L 08/10/22 04:07 Resp 16 08/10/22 04:07 BP 112/64 08/10/22 04:07 Pulse Ox 95 08/10/22 04:07 O2 Del Method 08/10/22 04:07 Weight last 48 hrs Weight 130 lb Physical Exam Narrative: General: alert, NAD HEENT: conj clear, EOMI, PERRL, mmm, Neck: supple, no meningismus Heme: no cervical LAP Pulmonary: Reduced breath sounds on right lower lung mahajan Cardiovascular: rrr, nl s1s2, no mrg Abdomen: soft, nt, nd, no r/g, bs+ Extremities: pulses +, no edema, no c/c : no CVA tenderness Skin: intact, no rash MSK: no back or neck pain Neurologic: grossly intact Data : 08/09/22 15:08/09/22 15: Other Labs: Laboratory Results WBC 4.5 10^3/uL (4.0-10.0) 08/09/22 15: RBC 4.00 10^6/uL (4.1-5.3) L 08/09/22 15: Hgb 12.2 g/dL (11.7-16.6) 08/09/22 15: Hct 38.4 % (42.0-52.0) L 08/09/22 15: MCV 96.0 fl (80-94) H 08/09/22 15: MCH 30.5 pg (28.0-34.0) 08/09/22 15: MCHC 31.8 g/dL (30.0-36.0) 08/09/22 15: RDW 14.2 % (12.1-15.1) 08/09/22 15: Plt Count 258 10^3/cmm (130-400) 08/09/22 15: MPV 10.0 fL (7.4-10.4) 08/09/22 15: Neut % (Auto) 58.0 % 08/09/22 15: Lymph % (Auto) 20.9 % 08/09/22 15:23 [place] % (Auto) 11.9 % 08/09/22 15: Eos % (Auto) 7.2 % 08/09/22 15: Baso % (Auto) 1.3 % 08/09/22 15: Neut # (Auto) 2.58 10^3/uL (1.8-7.7) 08/09/22 15: Lymph # (Auto) 0.9 10^3/uL (0.8-4.8) 08/09/22 15: [place] # (Auto) 0.5 10^3/uL (0.2-0.9) 08/09/22 15:23 Eos # (Auto) 0.3 10^3/uL (0.0-0.8) 08/09/22 15: Baso # (Auto) 0.1 10^3/uL (0.0-0.1) 08/09/22 15:23 Nucleated RBC % (auto) 0 % 08/09/22 15: Nucleated RBCs # 0.0 /100WBC 08/09/22 15: Specimen Type Arterial 08/09/22 17:03 Sample Site Brachial, right 08/09/22 17:03 ABG pH 7.43 (7.35-7.45) 08/09/22 17:03 ABG pCO2 41.1 mmHg (35-45) 08/09/22 17:03 ABG pO2 90.7 mmHg (80.0-100.0) 08/09/22 17:03 ABG HCO3 27.4 mmol/L (22-26) H 08/09/22 17:03 ABG O2 Saturation 97.8 08/09/22 17:03 ABG Base Excess 2.8 mmol/L (-2.0-2.0) H 08/09/22 17:03 Jeet Test N/a 08/09/22 17:03 A-a O2 Gradient 1.1 mmHg (5-10) L 08/09/22 17:03 Hematocrit 35.4 % (42-52) L 08/09/22 17:03 Hgb O2 Saturation 96.7 % (95-100) 08/09/22 17:03 Carboxyhemoglobin < 1.0 %THgb (0.4-20.1) 08/09/22 17:03 Methemoglobin 0.4 % (0.4-1.5) 08/09/22 17:03 Total Hemoglobin 11.5 g/dL (14-18) L 08/09/22 17:03 Sodium 140.0 mmol/L (131-143) 08/09/22 17:03 Potassium 3.5 mmol/L (3.5-5.0) 08/09/22 17:03 Glucose 87.0 mg/dL (70-115) 08/09/22 17:03 Ionized Calcium 1.1 mmol/L (1.1-1.4) 08/09/22 17:03 O2 Delivery Device Room air 08/09/22 17:03 FiO2 21.0 % 08/09/22 17:03 Filler Leaf Cutter Long ID Ed 08/09/22 17:03 Sodium 139 mmol/L (136-145) 08/09/22 15:23 Potassium 4.0 mmol/L (3.5-5.1) 08/09/22 15:23 Chloride 103 mmol/L (98-107) 08/09/22 15:23 Carbon Dioxide 29 mmol/L (22-29) 08/09/22 15:23 Anion Gap 11.0 (5-19) 08/09/22 15:23 BUN 20 mg/dL (8-23) 08/09/22 15:23 Creatinine 1.2 mg/dL (0.7-1.2) 08/09/22 15:23 GFR Calculation Not Reportable 08/09/22 15:23 Glucose 88 mg/dL (65-115) 08/09/22 15:23 Calculated Osmolality 290 mOsm/kg (285-295) 08/09/22 15:23 Calcium 8.3 mg/dL (8.5-10.5) L 08/09/22 15:23 Total Bilirubin 0.2 mg/dL (0.15-1.2) 08/09/22 15:23 AST 12 U/L (0-40) 08/09/22 15:23 ALT < 5 U/L (0-41) 08/09/22 15:23 Alkaline Phosphatase 60 U/L (40-130) 08/09/22 15:23 Total Protein 6.1 g/dL (6.6-8.7) L 08/09/22 15:23 Albumin 2.9 g/dL (3.5-5.2) L 08/09/22 15:23 Globulin 3.2 g/dL (1.3-4.6) 08/09/22 15:23 Urine Color Colorless (Yellow) 08/09/22 19:00 Urine Appearance Clear (CLEAR) 08/09/22 19:00 Urine pH 5 (5-7) 08/09/22 19:00 Ur Specific [place] 1.020 (1.005-1.030) 08/09/22 19:00 Urine Protein Neg (Negative) 08/09/22 19:00 Urine Glucose (UA) Norm (Normal) 08/09/22 19:00 Urine Ketones Negative (Negative) 08/09/22 19:00 Urine Blood Neg (Negative) 08/09/22 19:00 Urine Nitrate Negative (Negative) 08/09/22 19:00 Urine Bilirubin Neg (Negative) 08/09/22 19:00 Urine Urobilinogen Neg mg/dL (Negative) 08/09/22 19:00 Ur Leukocyte Esterase Negative (Negative) 08/09/22 19:00 A&P Assessment and plan (1) Hydropneumothorax: Status: Acute (2) Atrial fibrillation with slow ventricular response: Status: Acute (3) Weight loss, unintentional: Status: Acute (4) Mesenteric lymphadenopathy: Status: Acute (5) Mural thickening of small intestine: Status: Acute Plan #Right hydropneumothorax-etiology unknown -Hemodynamically stable-patient saturating 95 - 100% on room air -Hydropneumothorax appears loculated on right side with trapped lung physiology- however with no pleural interventions surprising how patient developed pneumothorax -I will obtain diagnostic thoracentesis-currently held his Eliquis today -Serial chest x-rays to monitor for progression/resolution #Atrial fibrillation-rate controlled -On Eliquis-held in anticipation of thoracentesis #Borderline ejection fraction on echo 03/02/2022 -Currently on Lasix 40 Mg daily #Possible soft tissue mass in the RIGHT middle lobe abutting the pleural surface measuring 2.6 x 1.5 x 2.8 cm. #Mild thickening of the duodenal C-loop and mild thickening of the rectum. Suggest additional evaluation by endoscopy. #Mesenteric lymphadenopathy, -All these features on CT scan are suspicious for malignancy -Obtaining biopsy of right pleural mass in the context of existing right hydropneumothorax is challenging -I will send pleural fluid for cytology Will monitor patient for next 24 to 48 hours for his right hydropneumothorax Recommendations conveyed to hospitalist taking care of the patient Consult Attestations Medical Necessity Statement: Anticipating at least 24 to 48 hours stay Time Spent in Patient Care: Greater than 35 minutes (>than 50% of time spent in counselling and/or direct pt care on unit) . Critical Care Time: The high probability of a clinically significant, sudden or life threatening deterioration of the patient's [respiratory] system(s) required my full and direct attention, intervention and personal management. The critical care time is as shown. This time is in addition to time spent performing any reported procedures but includes the following: [x] Data and vital sign review and interpretation [x] Patient assessment, examination and intervention [x] Documentation [x] Medication orders and management Critical Care Time (min): 45 Coding Level of Care Code New Pt Acute Track Inspecting Supervisor for Chg Fwd Patient Type New History Comprehensive Exam Comprehensive Medical Decision Making Moderate Complexity Diagnoses Hydropneumothorax J94.8 Atrial fibrillation with slow ventricular response I48.91 Weight loss, unintentional R63.4 Mesenteric lymphadenopathy R59.0 Mural thickening of small intestine K63.9 Time Spent (min) 45
[2022-08-10 07:22] LABS: Basophils % 1.3 %; Eosinophils # 0.3 10^3/uL (0.0-0.8); Eosinophils % 9.2 %; Hematocrit 33.7 % (42.0-52.0); Hemoglobin 10.5 g/dL (11.7-16.6); Lymphocytes # 0.7 10^3/uL (0.8-4.8); Lymphocytes % 21.2 %; Mean Corpuscular HGB Conc 31.2 g/dL (30.0-36.0); Mean Corpuscular Hemoglobin 30.2 pg (28.0-34.0); Mean Corpuscular Volume 96.8 fl (80-94); Mean Platelet Volume 9.8 fL (7.4-10.4); Monocytes # 0.5 10^3/uL (0.2-0.9); Monocytes % 14.9 %; Neutrophils # 1.67 10^3/uL (1.8-7.7); Neutrophils % 52.8 %; Nucleated Red Blood Cells % 0 %; Platelet Count 196 10^3/cmm (130-400); Red Blood Count 3.48 10^6/uL (4.1-5.3); Red Cell Distribution Width 14.1 % (12.1-15.1); White Blood Count 3.2 10^3/uL (4.0-10.0)
[2022-08-10 07:42] LABS: Alanine Aminotransferase < 5 U/L (0-41); Alkaline Phosphatase 48 U/L (40-130); Aspartate Amino Transferase 7 U/L (0-40); Blood Urea Nitrogen 19 mg/dL (8-23); Calcium 8.3 mg/dL (8.5-10.5); Carbon Dioxide 28 mmol/L (22-29); Chloride 107 mmol/L (98-107); Globulin 2.9 g/dL (1.3-4.6); Glucose 83 mg/dL (65-115); Osmolality Calculated 297 mOsm/kg (285-295); Sodium 143 mmol/L (136-145); Total Bilirubin 0.2 mg/dL (0.15-1.2); Total Protein 4.9 g/dL (6.6-8.7)
[2022-08-10 07:50] LABS: Thyroid Stimulating Hormone 4.33 uIU/mL (0.27-4.20)
[2022-08-10] MEDS: docusate sodium 100 mg Capsule PO (08:58)
[2022-08-10] MEDS: pantoprazole DR 40 mg Tablet PO (08:58)
[2022-08-10] MEDS: ferrous sulfate EC 325 mg Tablet PO (08:58)
[2022-08-10] MEDS: FUROsemide 40 mg Tablet PO (08:58)
[2022-08-10] MEDS: b-complex-vitamin c Tablet 1 EACH PO (08:59)
--- NOTE | 2022-08-10 10:00 | XRR_ITS ---
PROCEDURE INFORMATION: Exam: XR Chest Exam date and time: 08/10/2022 9:49 AM Age: 81 years old Clinical indication: Condition or disease; Lung condition and disease; Other: Hydropneumothorax; Prior surgery; Surgery type: Hernia TECHNIQUE: Imaging protocol: Radiologic exam of the chest. Views: 1 view. COMPARISON[place] [id number] 08/08/2022 3:06 PM FINDINGS: Lungs: Unremarkable. No consolidation. Pleural spaces: Moderate bilateral lower lobe pleural effusion. There is a right apical pneumothorax. This finding was documented on prior examination 08/08/2022 and appears similar. Heart/Mediastinum: Unremarkable. No cardiomegaly. Bones/joints: Unremarkable. XR/XR chest 1V portable [id number] IMPRESSION: 1. Right apical pneumothorax stable since prior 2. Bilateral lower lobe pleural effusion
[2022-08-10 10:51] VITALS: BP 134/84; PULSE 81; RESP 16; O2SAT 98
[2022-08-10 12:00] VITALS: BP 124/72; PULSE 86; RESP 16; TEMP 36.8; O2SAT 93
--- NOTE | 2022-08-10 13:02 | PC.NURSE ---
Thoracentesis Procedure Note Time out preformed at 1258. VS stable. Dr. Lazo prepped right posterior chest wall at 1315. Lidocaine injected at 1323. Incision made and catheter inserted at 1325. 800 ml removed. Catheter removed at 1333. VS remain stable.
--- NOTE | 2022-08-10 13:41 | XR_ITS ---
WS: [id number] CHEST XRAY TECHNIQUE: Portable chest. CLINICAL INFORMATION: POST RIGHT THORACENTESIS COMPARISON: August 10, 2022, CT August 08, 2022 FINDINGS: Heart: Cardiomegaly. Lungs: Small LEFT pleural effusion with LEFT basilar infiltrate is unchanged. Improved RIGHT hydropne umothorax status post thoracentesis. Hydropneumothorax appears improved since the prior CT August 08, 2022. Bones: Osteopenia. XR/XR chest 1V portable [id number] IMPRESSION: 1. Status post RIGHT thoracentesis. RIGHT hydropneumothorax appears improved c ompared to August 08, 2022 with residual RIGHT lower lobe and apical pneumot horax. 2. Small LEFT pleural effusion with patchy infiltration LEFT lower lobe.
[2022-08-10 13:57] VITALS: BMI 18.1
[2022-08-10 14:22] LABS: Body Fluid Polynuclear #Cells 0.079; Body Fluid WBC 814 /uL; Monocytes # Body Fluid 0.735
[2022-08-10 14:37] LABS: Albumin Body Fluid 1.2 g/dL; Creatinine Body Fluid 1.02 (0.7-1.2)
[2022-08-10 14:38] LABS: Hematocrit Body Fluid 0.2 %; LDH Pleural Fluid 283 U/L; Total Protein Pleural Fluid 2.3 g/dL
[2022-08-10] MEDS: lidocaine 1% INJ 20 mL MDV (mL) INJECTION (14:39)
[2022-08-10 14:50] LABS: Triglycerides, Pleural Fluid 9 mg/dL
--- NOTE | 2022-08-10 14:50 | PM.ACPR ---
Procedure/Consent Time out: Time Out Performed: Yes Consent: Consent for Procedure: Consent obtained from patient, Risks & Benefits reviewed and Agrees to proceed with procedure Procedure Narrative: Pulmonary & Critical Care Medicine Procedure - Ultrasound guided Thoracentesis Procedure: Ultrasound guided Thoracentesis Indication: Pleural effusion Urology Physician(s): Sky Lazo MD Consent: Signed and placed in chart Anesthesia: 10 cc 1% lidocaine without epinephrine Description: CT chest reviewed and noted right hydropneumothorax; Pleural effusion was localized using ultrasound guidance and the appropriate site was marked accordingly. A time out was performed. My hands were washed immediately prior to the procedure. I wore a surgical cap, mask with protective eyewear, sterile gown and sterile gloves throughout the procedure. The patient was placed in appropriate position, area of interest was sterilized with chlorhexidine skin prep and draped in a sterile manner. 1% lidocaine was used to anesthesize the skin, subcutaneous tissue, superior aspect of the rib periosteum and parietal pleura. A finder needle was then introduced over the superior aspect of the rib to locate the pleural fluid; 10cc hemorrhagic colored fluid was aspirated. A 10-blade scalpel was used to naren the skin at the insertion site. The Ptbg-u-[place] needle was then introduced through the skin incision into the pleural space using negative aspiration pressure and the red colormetric indicator to confirm appropriate positioning of the needle. The thoracentesis catheter was then threaded without difficult. 800 CC hemorraghic colored fluid was removed without difficulty. The catheter was then removed. No immediate complications were noted during the procedure. The fluid will be sent for studies. Estimated blood loss is 5 - 10 CC. Ultrasound guidance used: yes. EBL: 5-10 cc Complications: None PCXR: A post-procedure chest x-ray did show same small right apical and basal pneumo that was seen on previous x rays Acute Procedures Epistaxis Control: Time out performed: Yes
[2022-08-10 15:02] LABS: Apprearance, Body Fluid CLOUDY; Color, Body Fluid AMBER
[2022-08-10 15:03] LABS: Cyto Order Verification No Order
[2022-08-10 16:00] VITALS: BP 119/68; PULSE 85; RESP 16; TEMP 36.8; O2SAT 96
--- NOTE | 2022-08-10 17:07 | PM.PN ---
Subjective Subjective: Today he is doing okay. States he cannot sleep at night, had to stay in ER and was waking up frequently. Denies chest pain. Denies trouble breathing. Has no cough. Vitals/I&O/Wt Last Vital Signs Temp 98.3 F 08/10/22 16:00 Pulse 85 08/10/22 16:00 Resp 16 08/10/22 16:00 BP 119/68 08/10/22 16:00 Pulse Ox 96 08/10/22 16:00 O2 Del Method 08/10/22 14:02 Weight last 48 hrs Weight 58.967 kg Weight 58.967 kg Physical Exam Const: COMMON NORMALS: patient oriented x3 and alert GENERAL APPEARANCE: cooperative ORIENTATION/CONSCIOUSNESS: Yes awake HENMT: COMMON NORMALS: oropharynx normal Neck/C-Spine: COMMON NORMALS: no JVD Resp: COMMON NORMALS: normal respiratory effort AUSCULTATION: diminished lung sounds on the right in the lower lung mahajan Cardio: COMMON NORMALS: no JVD, regular rhythm, S1 normal heart sound present, S2 normal heart sound present and No murmurs present (Cardio) RHYTHM: regular rhythm HEART SOUNDS: S1 normal heart sound present and S2 normal heart sound present GI: COMMON NORMALS: Normal to inspection, nondistended, normoactive bowel sounds present, Soft to palpation and non-tender PALPATION: Yes Soft to palpation Extremity: COMMON NORMALS: no joint enlargement and no pedal edema Neuro: COMMON NORMALS: patient oriented x3 and moves all extremities SENSORIUM/ORIENTATION: Yes alert Skin: COMMON NORMALS: no rashes or lesions noted GENERAL SKIN EXAM: no rashes or lesions noted Data : 08/10/22 07:11 08/10/22 07:11 A&P Assessment and plan (1) Hydropneumothorax: Status postthoracentesis today 800 cc removed per discussion with pulmonology. May resume anticoagulation tonight. Follow-up CXR. Hold Eliquis. Monitor oxygenation. Appreciate pulmonary consultation, consideration of thoracentesis. Oxygen support as needed. Currently no sign of infection. Monitor for any change. Status: Acute (2) Mass of middle lobe of right lung: Follow-up cytology from pleural fluid. Otherwise may require biopsy but difficult to reach. Unclear etiology of mass, other suspicious findings with mesenteric lymphadenopathy, small ascites, noted also thickening duodenum, rectum. Status: Acute (3) Ascites: Incidentally noted small ascites on CT. Status: Acute (4) Mesenteric lymphadenopathy: Unclear etiology, early metastatic disease not excluded. Additional work-up of lung mass, effusion as above. Status: Acute (5) Mural thickening of small intestine: Denies any abdominal pain or discomfort. No nausea. No vomiting. May benefit from endoscopic evaluation. PPI. Status: Acute (6) Abnormality of rectum: Thickening of the rectum noted. He states had a colonoscopy about 6 years ago. May benefit from endoscopic evaluation given other findings. Occult blood test. Status: Acute (7) Cardiomegaly: Reported by CT. Echocardiogram in February of this year with borderline normal ejection fraction, diastolic function indeterminate with atrial fibrillation. LA mildly dilated. Thickened MV. Mild MVR. Thickened AV. Mild . Mild AVR. Mild PVR. Currently does not appear to be in decompensated congestive heart failure. Status: Acute Plan A. fib: Resume anticoagulation tonight. Attestations Medical Necessity Statement*: Continue admission for assessment management of hydropneumothorax, reassessment, reintroduction of anticoagulation. Coding Level of Care Code Acute Paper Processing Machine Helper for Chg Fwd Exam Comprehensive Diagnoses Hydropneumothorax J94.8 Mass of middle lobe of right lung R91.8 Ascites R18.8 Mesenteric lymphadenopathy R59.0 Mural thickening of small intestine K63.9 Abnormality of rectum K62.9 Cardiomegaly I51.7
[2022-08-10 20:00] VITALS: BP 117/60; PULSE 66; RESP 16; TEMP 36.7; O2SAT 98
[2022-08-10] MEDS: enoxaparin 60 mg/0.6 mL Syringe SUBCUT (20:10)
[2022-08-11] VITALS: BP 110/62; PULSE 73; RESP 16; TEMP 36.4; O2SAT 96
[2022-08-11 04:00] VITALS: BP 120/67; PULSE 62; RESP 17; TEMP 36.5; O2SAT 95
[2022-08-11 05:03] LABS: Basophils % 0.8 %; Eosinophils # 0.2 10^3/uL (0.0-0.8); Eosinophils % 5.7 %; Lymphocytes # 0.9 10^3/uL (0.8-4.8); Lymphocytes % 24.6 %; Mean Corpuscular HGB Conc 31.4 g/dL (30.0-36.0); Mean Corpuscular Hemoglobin 30.3 pg (28.0-34.0); Mean Corpuscular Volume 96.4 fl (80-94); Monocytes # 0.4 10^3/uL (0.2-0.9); Monocytes % 11.1 %; Neutrophils # 2.14 10^3/uL (1.8-7.7); Neutrophils % 57.8 %; Nucleated Red Blood Cells % 0 %; Platelet Count 206 10^3/cmm (130-400); Red Blood Count 3.63 10^6/uL (4.1-5.3); Red Cell Distribution Width 14.2 % (12.1-15.1); White Blood Count 3.7 10^3/uL (4.0-10.0)
[2022-08-11 05:39] LABS: Anion Gap 10.7 (5-19); Blood Urea Nitrogen 18 mg/dL (8-23); Carbon Dioxide 29 mmol/L (22-29); Chloride 104 mmol/L (98-107); Glucose 88 mg/dL (65-115); Osmolality Calculated 291 mOsm/kg (285-295); Potassium 3.7 mmol/L (3.5-5.1); Sodium 140 mmol/L (136-145)
[2022-08-11 07:44] VITALS: BP 99/64; PULSE 62; RESP 16; TEMP 36.4; O2SAT 96
[2022-08-11] MEDS: b-complex-vitamin c Tablet 1 EACH PO (08:15)
[2022-08-11] MEDS: ferrous sulfate EC 325 mg Tablet PO (08:15)
[2022-08-11] MEDS: enoxaparin 60 mg/0.6 mL Syringe SUBCUT (08:15)
[2022-08-11] MEDS: docusate sodium 100 mg Capsule PO (08:15)
[2022-08-11] MEDS: pantoprazole DR 40 mg Tablet PO (08:15)
--- NOTE | 2022-08-11 10:00 | XR_ITS ---
WS: [id number] Portable AP upright chest, 08/11/2022 Clinical Data: Hydropneumothorax Comparison: Portable chest, 08/10/2022 Findings: The right pleural effusion shows recurrence with a small amount of fluid. There is still a left pleural effusion. There is a small right apical pneumothorax. The heart size is enlarged. XR/XR chest 1V portable [id number] Impression: 1. Recurrence of right pleural effusion with no change in right apical pneumoth orax. 2. No change in left pleural effusion.
[2022-08-11 11:46] VITALS: BP 119/74; RESP 16; TEMP 36.4
--- NOTE | 2022-08-11 12:57 | P.PN_ITS ---
Subjective Subjective: Patient was having breakfast -Reported that he still does not have enough appetite -Breathing is somewhat better since thoracentesis -Other labs and imaging reviewed-chest x-ray today morning showed reaccumulation of right pleural effusion with small pneumothorax Vitals/I&O/Wt Last Vital Signs Temp 97.5 F L 08/11/22 11:46 Pulse 62 08/11/22 07:44 Resp 16 08/11/22 11:46 BP 119/74 08/11/22 11:46 Pulse Ox 96 08/11/22 07:44 O2 Del Method 08/11/22 07:44 08/10/22 08/11/22 08/11/22 22:59 06:59 14:59 Intake Total 360 / 360 120 / 120 Balance 360 / 360 120 / 120 Weight last 48 hrs Weight 130 lb 8 oz Weight 130 lb Weight 130 lb Physical Exam Narrative: General: alert, NAD HEENT: conj clear, EOMI, PERRL, mmm, Neck: supple, no meningismus Heme: no cervical LAP Pulmonary: Reduced breath sounds on right lower lung mahajan Cardiovascular: rrr, nl s1s2, no mrg Abdomen: soft, nt, nd, no r/g, bs+ Extremities: pulses +, no edema, no c/c : no CVA tenderness Skin: intact, no rash MSK: no back or neck pain Neurologic: grossly intact Data : 08/11/22 04:40 08/11/22 04:40 Other Labs: Radiology Impressions Chest X-Ray 08/11/22 10:00 Impression: 1. Recurrence of right pleural effusion with no change in right apical pn eumothorax. 2. No change in left pleural effusion. Laboratory Results WBC 3.7 10^3/uL (4.0-10.0) L 08/11/22 04:40 RBC 3.63 10^6/uL (4.1-5.3) L 08/11/22 04:40 Hgb 11.0 g/dL (11.7-16.6) L 08/11/22 04:40 Hct 35.0 % (42.0-52.0) L 08/11/22 04:40 MCV 96.4 fl (80-94) H 08/11/22 04:40 MCH 30.3 pg (28.0-34.0) 08/11/22 04:40 MCHC 31.4 g/dL (30.0-36.0) 08/11/22 04:40 RDW 14.2 % (12.1-15.1) 08/11/22 04:40 Plt Count 206 10^3/cmm (130-400) 08/11/22 04:40 MPV 10.0 fL (7.4-10.4) 08/11/22 04:40 Neut % (Auto) 57.8 % 08/11/22 04:40 Lymph % (Auto) 24.6 % 08/11/22 04:40 [place] % (Auto) 11.1 % 08/11/22 04:40 Eos % (Auto) 5.7 % 08/11/22 04:40 Baso % (Auto) 0.8 % 08/11/22 04:40 Neut # (Auto) 2.14 10^3/uL (1.8-7.7) 08/11/22 04:40 Lymph # (Auto) 0.9 10^3/uL (0.8-4.8) 08/11/22 04:40 [place] # (Auto) 0.4 10^3/uL (0.2-0.9) 08/11/22 04:40 Eos # (Auto) 0.2 10^3/uL (0.0-0.8) 08/11/22 04:40 Baso # (Auto) 0.0 10^3/uL (0.0-0.1) 08/11/22 04:40 Nucleated RBC % (auto) 0 % 08/11/22 04:40 Nucleated RBCs # 0.0 /100WBC 08/11/22 04:40 Specimen Type Arterial 08/09/22 17:03 Sample Site Brachial, right 08/09/22 17:03 ABG pH 7.43 (7.35-7.45) 08/09/22 17:03 ABG pCO2 41.1 mmHg (35-45) 08/09/22 17:03 ABG pO2 90.7 mmHg (80.0-100.0) 08/09/22 17:03 ABG HCO3 27.4 mmol/L (22-26) H 08/09/22 17:03 ABG O2 Saturation 97.8 08/09/22 17:03 ABG Base Excess 2.8 mmol/L (-2.0-2.0) H 08/09/22 17:03 Jeet Test N/a 08/09/22 17:03 A-a O2 Gradient 1.1 mmHg (5-10) L 08/09/22 17:03 Hematocrit 35.4 % (42-52) L 08/09/22 17:03 Hgb O2 Saturation 96.7 % (95-100) 08/09/22 17:03 Carboxyhemoglobin < 1.0 %THgb (0.4-20.1) 08/09/22 17:03 Methemoglobin 0.4 % (0.4-1.5) 08/09/22 17:03 Total Hemoglobin 11.5 g/dL (14-18) L 08/09/22 17:03 Sodium 140.0 mmol/L (131-143) 08/09/22 17:03 Potassium 3.5 mmol/L (3.5-5.0) 08/09/22 17:03 Glucose 87.0 mg/dL (70-115) 08/09/22 17:03 Ionized Calcium 1.1 mmol/L (1.1-1.4) 08/09/22 17:03 O2 Delivery Device Room air 08/09/22 17:03 FiO2 21.0 % 08/09/22 17:03 Industrial Manufacturing Technician ID Ed 08/09/22 17:03 Sodium 140 mmol/L (136-145) 08/11/22 04:40 Potassium 3.7 mmol/L (3.5-5.1) 08/11/22 04:40 Chloride 104 mmol/L (98-107) 08/11/22 04:40 Carbon Dioxide 29 mmol/L (22-29) 08/11/22 04:40 Anion Gap 10.7 (5-19) 08/11/22 04:40 BUN 18 mg/dL (8-23) 08/11/22 04:40 Creatinine 1.1 mg/dL (0.7-1.2) 08/11/22 04:40 GFR Calculation Not Reportable 08/11/22 04:40 Glucose 88 mg/dL (65-115) 08/11/22 04:40 Calculated Osmolality 291 mOsm/kg (285-295) 08/11/22 04:40 Calcium 8.0 mg/dL (8.5-10.5) L 08/11/22 04:40 Total Bilirubin 0.2 mg/dL (0.15-1.2) 08/10/22 07:11 AST 7 U/L (0-40) 08/10/22 07:11 ALT < 5 U/L (0-41) 08/10/22 07:11 Alkaline Phosphatase 48 U/L (40-130) 08/10/22 07:11 Total Protein 4.9 g/dL (6.6-8.7) L 08/10/22 07:11 Albumin 2.0 g/dL (3.5-5.2) L 08/10/22 07:11 Globulin 2.9 g/dL (1.3-4.6) 08/10/22 07:11 TSH 4.33 uIU/mL (0.27-4.20) H 08/10/22 07:11 Urine Color Colorless (Yellow) 08/09/22 19:00 Urine Appearance Clear (CLEAR) 08/09/22 19:00 Urine pH 5 (5-7) 08/09/22 19:00 Ur Specific [place] 1.020 (1.005-1.030) 08/09/22 19:00 Urine Protein Neg (Negative) 08/09/22 19:00 Urine Glucose (UA) Norm (Normal) 08/09/22 19:00 Urine Ketones Negative (Negative) 08/09/22 19:00 Urine Blood Neg (Negative) 08/09/22 19:00 Urine Nitrate Negative (Negative) 08/09/22 19:00 Urine Bilirubin Neg (Negative) 08/09/22 19:00 Urine Urobilinogen Neg mg/dL (Negative) 08/09/22 19:00 Ur Leukocyte Esterase Negative (Negative) 08/09/22 19:00 Fluid Color Deepti 08/10/22 13:30 Fluid Appearance Cloudy 08/10/22 13:30 Fluid WBC 814 /uL 08/10/22 13:30 Fluid RBC 13.000 10^3/uL 08/10/22 13:30 Fluid Hematocrit 0.2 % 08/10/22 13:30 Fld Polynuclear WBCs # 0.079 08/10/22 13:30 Fld Polynuclear WBCs % 9.700 % 08/10/22 13:30 Fl Mononucl WBCs #(Auto) 0.735 08/10/22 13:30 Fl Mononuclear % Auto 90.300 % 08/10/22 13:30 Fluid Albumin 1.2 g/dL 08/10/22 13:30 Fluid Creatinine 1.02 (0.7-1.2) 08/10/22 13:30 Pleural pH 7.00 (6.5-7.5) 08/10/22 13:30 Pleural Total Protein 2.3 g/dL 08/10/22 13:30 Pleural LDH 283 U/L 08/10/22 13:30 Pleural Glucose 99.0 mg/dL 08/10/22 13:30 Pleural Amylase 51.0 U/L 08/10/22 13:30 Pleural Triglycerides 9 mg/dL 08/10/22 13:30 A&P Assessment and plan (1) Hydropneumothorax: Status: Acute (2) Atrial fibrillation with slow ventricular response: Status: Acute (3) Weight loss, unintentional: Status: Acute (4) Mesenteric lymphadenopathy: Status: Acute (5) Mural thickening of small intestine: Status: Acute Plan #Right hydropneumothorax-etiology unknown -Hemodynamically stable-patient saturating 95 - 100% on room air -Hydropneumothorax appears loculated on right side with trapped lung physiology- however with no pleural interventions surprising how patient developed pneu mothorax -S/p thoracentesis 08/10/2022-drained 800 cc hemorrhagic fluid-lymphocyte predominant exudative; cultures and cytology still pending -chest x-ray today morning showed recurrence of right pleural effusion and persistent Small apical pneumothorax -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 #Mild thickening of the duodenal C-loop and mild thickening of the rectum. Suggest additional evaluation by endoscopy. #Mesenteric lymphadenopathy, -All these features on CT scan are suspicious for malignancy -Obtaining biopsy of right pleural mass in the context of existing right hydropneumothorax is challenging -I will send pleural fluid for cytology and if negative-I will refer to CT surgery as outpatient for thoracoscopic intervention to obtain pleural biopsy Recommendations conveyed to hospitalist taking care of the patient Attestations Medical Necessity Statement*: Patient is stable to be discharged home Time Spent in Patient Care: Greater than 35 minutes (>than 50% of time spent in counselling and/or direct pt care on unit) . Coding Level of Care Code Established Pt Acute Art Instructor for Chg Fwd Patient Type Established History Comprehensive Exam Comprehensive Medical Decision Making Moderate Complexity Diagnoses Hydropneumothorax J94.8 Atrial fibrillation with slow ventricular response I48.91 Weight loss, unintentional R63.4 Mesenteric lymphadenopathy R59.0 Mural thickening of small intestine K63.9 Time Spent (min) 36
--- NOTE | 2022-08-11 13:36 | PC.NURSE ---
Patient and were provided discharge education and information regarding follow up. Patient and verbalized understanding.
[2022-08-11 13:48] VITALS: BP 119/74; RESP 16; TEMP 36.4
--- NOTE | 2022-08-11 22:16 | PM.DCS ---
Discharge Providers Date of Admission: 08/09/22 23:48 Date of Discharge: August 11, 2022 Attending Provider at Admission: Jayce Teresa Attending Provider at Discharge: Jayce Teresa Primary Care Provider: KURTIS Valdez Diagnoses at Discharge Discharge Diagnosis (1) Hydropneumothorax: Status: Acute (2) Atrial fibrillation with slow ventricular response: Status: Acute (3) Weight loss, unintentional: Status: Acute (4) Mesenteric lymphadenopathy: Status: Acute (5) Mural thickening of small intestine: Status: Acute Reason for Visit Reason for Visit: Dr. Rivas asked to come back Hospital Course Hospital Course Pleasant 81-year-old gentleman with atrial fibrillation on anticoagulation with Eliquis, with several months of shortness of breath, weight loss, poor appetite, was directed to ER for evaluation of hydropneumothorax seen on outpatient work-up with CT, with additional incidental findings including possible soft tissue mass in right middle lobe, small amount of free fluid in the pelvis, central mesenteric lymph nodes, early metastatic adenopathy not excluded, mild thickening of duodenal C-loop and mild thickening of rectum. Suggested evaluation by endoscopy. Cardiomegaly. He was evaluated by pulmonology, underwent thoracentesis, underwent reassessment due to small pneumothorax. Thoracentesis obtained for diagnostic purposes with concern for possible malignancy since at the moment right middle lobe soft tissue mass not otherwise accessible. Cytology pending. Please follow-up. In case nondiagnostic, and in case of resolution of pneumothorax, other diagnostic means may be biopsy with CT surgery If remains with stable respiratory status, additional consideration may be given to referral for endoscopic evaluation of duodenal and rectal thickening. He did well through hospitalization stay. Saturations remained good on room air. 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 Physical Exam Const: COMMON NORMALS: patient oriented x3 and alert GENERAL APPEARANCE: cooperative ORIENTATION/CONSCIOUSNESS: Yes awake HENMT: COMMON NORMALS: oropharynx normal Neck/C-Spine: COMMON NORMALS: no JVD Resp: COMMON NORMALS: normal respiratory effort and clear to auscultation bilaterally AUSCULTATION: clear to auscultation bilaterally and diminished lung sounds on the right in the lower lung mahajan Cardio: COMMON NORMALS: no JVD, regular rhythm, S1 normal heart sound present, S2 normal heart sound present and No murmurs present (Cardio) RHYTHM: regular rhythm HEART SOUNDS: S1 normal heart sound present and S2 normal heart sound present GI: COMMON NORMALS: Normal to inspection, nondistended, normoactive bowel sounds present, Soft to palpation and non-tender PALPATION: Yes Soft to palpation Extremity: COMMON NORMALS: no joint enlargement and no pedal edema Neuro: COMMON NORMALS: patient oriented x3 and moves all extremities SENSORIUM/ORIENTATION: Yes alert Skin: COMMON NORMALS: no rashes or lesions noted GENERAL SKIN EXAM: no rashes or lesions noted Discharge Data Studies Completed and Pending Completed Studies During Hospitalization Category Date Time Status CXRP [XR chest 1V portable [id number]] DAILY Exams 08/10/22 10:00 Completed CXRP [XR chest 1V portable [id number]] DAILY Exams 08/11/22 10:00 Completed XR chest 1V portable [id number] Routine Exams 08/10/22 13:41 Completed Pending at discharge Category Date Time Status Body Fluid Culture & GS Routine Lab 08/10/22 13:30 Results Mycobacteria, Culture w/Fluor Routine Lab 08/10/22 13:30 Received Cytology [PTH] Routine Pth 08/10/22 13:41 Received Radiology Impressions Chest X-Ray 08/11/22 10:00 Impression: 1. Recurrence of right pleural effusion with no change in right apical pneumothorax. 2. No change in left pleural effusion. Laboratory Results WBC 3.7 10^3/uL (4.0-10.0) L 08/11/22 04:40 RBC 3.63 10^6/uL (4.1-5.3) L 08/11/22 04:40 Hgb 11.0 g/dL (11.7-16.6) L 08/11/22 04:40 Hct 35.0 % (42.0-52.0) L 08/11/22 04:40 MCV 96.4 fl (80-94) H 08/11/22 04:40 MCH 30.3 pg (28.0-34.0) 08/11/22 04:40 MCHC 31.4 g/dL (30.0-36.0) 08/11/22 04:40 RDW 14.2 % (12.1-15.1) 08/11/22 04:40 Plt Count 206 10^3/cmm (130-400) 08/11/22 04:40 MPV 10.0 fL (7.4-10.4) 08/11/22 04:40 Neut % (Auto) 57.8 % 08/11/22 04:40 Lymph % (Auto) 24.6 % 08/11/22 04:40 [place] % (Auto) 11.1 % 08/11/22 04:40 Eos % (Auto) 5.7 % 08/11/22 04:40 Baso % (Auto) 0.8 % 08/11/22 04:40 Neut # (Auto) 2.14 10^3/uL (1.8-7.7) 08/11/22 04:40 Lymph # (Auto) 0.9 10^3/uL (0.8-4.8) 08/11/22 04:40 [place] # (Auto) 0.4 10^3/uL (0.2-0.9) 08/11/22 04:40 Eos # (Auto) 0.2 10^3/uL (0.0-0.8) 08/11/22 04:40 Baso # (Auto) 0.0 10^3/uL (0.0-0.1) 08/11/22 04:40 Nucleated RBC % (auto) 0 % 08/11/22 04:40 Nucleated RBCs # 0.0 /100WBC 08/11/22 04:40 Specimen Type Arterial 08/09/22 17:03 Sample Site Brachial, right 08/09/22 17:03 ABG pH 7.43 (7.35-7.45) 08/09/22 17:03 ABG pCO2 41.1 mmHg (35-45) 08/09/22 17:03 ABG pO2 90.7 mmHg (80.0-100.0) 08/09/22 17:03 ABG HCO3 27.4 mmol/L (22-26) H 08/09/22 17:03 ABG O2 Saturation 97.8 08/09/22 17:03 ABG Base Excess 2.8 mmol/L (-2.0-2.0) H 08/09/22 17:03 Jeet Test N/a 08/09/22 17:03 A-a O2 Gradient 1.1 mmHg (5-10) L 08/09/22 17:03 Hematocrit 35.4 % (42-52) L 08/09/22 17:03 Hgb O2 Saturation 96.7 % (95-100) 08/09/22 17:03 Carboxyhemoglobin < 1.0 %THgb (0.4-20.1) 08/09/22 17:03 Methemoglobin 0.4 % (0.4-1.5) 08/09/22 17:03 Total Hemoglobin 11.5 g/dL (14-18) L 08/09/22 17:03 Sodium 140.0 mmol/L (131-143) 08/09/22 17:03 Potassium 3.5 mmol/L (3.5-5.0) 08/09/22 17:03 Glucose 87.0 mg/dL (70-115) 08/09/22 17:03 Ionized Calcium 1.1 mmol/L (1.1-1.4) 08/09/22 17:03 O2 Delivery Device Room air 08/09/22 17:03 FiO2 21.0 % 08/09/22 17:03 Fruit Inspector ID Ed 08/09/22 17:03 Sodium 140 mmol/L (136-145) 08/11/22 04:40 Potassium 3.7 mmol/L (3.5-5.1) 08/11/22 04:40 Chloride 104 mmol/L (98-107) 08/11/22 04:40 Carbon Dioxide 29 mmol/L (22-29) 08/11/22 04:40 Anion Gap 10.7 (5-19) 08/11/22 04:40 BUN 18 mg/dL (8-23) 08/11/22 04:40 Creatinine 1.1 mg/dL (0.7-1.2) 08/11/22 04:40 GFR Calculation Not Reportable 08/11/22 04:40 Glucose 88 mg/dL (65-115) 08/11/22 04:40 Calculated Osmolality 291 mOsm/kg (285-295) 08/11/22 04:40 Calcium 8.0 mg/dL (8.5-10.5) L 08/11/22 04:40 Total Bilirubin 0.2 mg/dL (0.15-1.2) 08/10/22 07:11 AST 7 U/L (0-40) 08/10/22 07:11 ALT < 5 U/L (0-41) 08/10/22 07:11 Alkaline Phosphatase 48 U/L (40-130) 08/10/22 07:11 Total Protein 4.9 g/dL (6.6-8.7) L 08/10/22 07:11 Albumin 2.0 g/dL (3.5-5.2) L 08/10/22 07:11 Globulin 2.9 g/dL (1.3-4.6) 08/10/22 07:11 TSH 4.33 uIU/mL (0.27-4.20) H 08/10/22 07:11 Urine Color Colorless (Yellow) 08/09/22 19:00 Urine Appearance Clear (CLEAR) 08/09/22 19:00 Urine pH 5 (5-7) 08/09/22 19:00 Ur Specific [place] 1.020 (1.005-1.030) 08/09/22 19:00 Urine Protein Neg (Negative) 08/09/22 19:00 Urine Glucose (UA) Norm (Normal) 08/09/22 19:00 Urine Ketones Negative (Negative) 08/09/22 19:00 Urine Blood Neg (Negative) 08/09/22 19:00 Urine Nitrate Negative (Negative) 08/09/22 19:00 Urine Bilirubin Neg (Negative) 08/09/22 19:00 Urine Urobilinogen Neg mg/dL (Negative) 08/09/22 19:00 Ur Leukocyte Esterase Negative (Negative) 08/09/22 19:00 Fluid Color Deepti 08/10/22 13:30 Fluid Appearance Cloudy 08/10/22 13:30 Fluid WBC 814 /uL 08/10/22 13:30 Fluid RBC 13.000 10^3/uL 08/10/22 13:30 Fluid Hematocrit 0.2 % 08/10/22 13:30 Fld Polynuclear WBCs # 0.079 08/10/22 13:30 Fld Polynuclear WBCs % 9.700 % 08/10/22 13:30 Fl Mononucl WBCs #(Auto) 0.735 08/10/22 13:30 Fl Mononuclear % Auto 90.300 % 08/10/22 13:30 Fluid Albumin 1.2 g/dL 08/10/22 13:30 Fluid Creatinine 1.02 (0.7-1.2) 08/10/22 13:30 Pleural pH 7.00 (6.5-7.5) 08/10/22 13:30 Pleural Total Protein 2.3 g/dL 08/10/22 13:30 Pleural LDH 283 U/L 08/10/22 13:30 Pleural Glucose 99.0 mg/dL 08/10/22 13:30 Pleural Amylase 51.0 U/L 08/10/22 13:30 Pleural Triglycerides 9 mg/dL 08/10/22 13:30 Vitals Last Vital Signs Temp 97.5 F L 08/11/22 13:48 Pulse 62 08/11/22 07:44 Resp 16 08/11/22 13:48 BP 119/74 08/11/22 13:48 Pulse Ox 96 08/11/22 07:44 O2 Del Method 08/11/22 07:44 Discharge Plan Discharge Patient Disposition: Home Condition: Stable Prescriptions: Continued ferrous sulfate [FeroSul] 325 mg (65 mg iron) tablet 325 mg PO DAILY cholecalciferol (vitamin D3) 1,250 mcg (50,000 unit) capsule 50,000 unit PO .once a week 90 Days Qty: 12 3RF vitamin B complex [B Complex-Vitamin B12] Tablet 1 tab PO DAILY 90 Days Qty: 90 0RF Colace 100 mg capsule 100 mg PO DAILY Eliquis 5 mg tablet 5 mg PO DAILY Label Comments: PT HAS NOT STARTED TAKING THIS MEDICATION Discontinued furosemide 40 mg tablet 40 mg PO DAILY Discharge Orders: Discharge Order (Routine); Ordered 08/11/22 Ordered By: Jayce Teresa Referrals: DatarSky MD [Physician] - 08/24/22 8:30 am Jaja Villafana FNP [Primary Care Provider] - 08/17/22 11:00 am Discharge Activity: Limit activity as instructed Patient Instructions: Laxative, Stool Softeners (By mouth), Apixaban (By mouth), Cholecalciferol (By mouth), Spontaneous Pneumothorax (GEN), Pleural Effusion (DC), Opioid Safety, Pain Management Activity Restrictions/Additional Instructions: Please make sure to follow-up with lung specialist for any assessment of pleural fluid, follow-up on cytology to see if there are any cancer cells in the fluid. Otherwise you will likely need a biopsy of the lung lesion. Please discuss with your primary doctor also regarding lymph nodes in your abdomen, small amount of fluid, as well as thickening of proximal small intestine and rectum. Discuss referral for additional endoscopic evaluation once your pneumothorax is resolved. Please stop Lasix scheduled, although you may take it as needed in case you develop swelling of both legs or ankles. In case you experience any progressive shortness of breath, chest pain or pressure, or any other concerning symptoms, call 911. Discharge Attestations Time Spent in Discharge Care*: greater than 30 min Quality Metrics Clinical Quality Measures [ No reported AMI, CVA or VTE this stay] Coding Level of Care Code Acute Chg FW DC note Diagnoses Hydropneumothorax J94.8 Atrial fibrillation with slow ventricular response I48.91 Weight loss, unintentional R63.4 Mesenteric lymphadenopathy R59.0 Mural thickening of small intestine K63.9
== END 2022-08-11 13:49 | disposition home or self-care (01) ==
LOC: ER 08-10 02:11 → MEDSURG 08-11 10:45
PROVIDERS: Internal Medicine Pulmonary Disease; Admitting Provider Internal Medicine; Emergency Provider Family Medicine; PCP Registered Nurse; Visit Provider Internal Medicine
DX: J94.8 Other specified pleural conditions (principal); J90 Pleural effusion, not elsewhere classified; I48.91 Unspecified atrial fibrillation; R18.8 Other ascites; R91.8 Other nonspecific abnormal finding of lung field; R59.1 Generalized enlarged lymph nodes; K63.9 Disease of intestine, unspecified; K62.9 Disease of anus and rectum, unspecified; I51.7 Cardiomegaly; R63.4 Abnormal weight loss; Z68.1 Body mass index [BMI] 19.9 or less, adult; Z79.01 Long term (current) use of anticoagulants; Z88.0 Allergy status to penicillin
CPT/HCPCS: 36415; 36600; 71045; 80048; 80051; 80053; 80503; 81003; 82042; 82150; 82330; 82570; 82805; 82945; 83615; 83986; 84157; 84443; 84478; 85014; 85025; 87015; 87070; 87075; 87116; 87205; 87206; 87801; 88108; 89050; 96372; 99285; G0378; J1650

== ENCOUNTER → 2022-08-23 09:46 | Outpatient (BNVA) | payer MEDICARE, SELFPAY | PROVIDERS: PCP Registered Nurse; Visit Provider Internal Medicine Pulmonary Disease | DX: J94.8 Other specified pleural conditions (principal); R91.1 Solitary pulmonary nodule; R63.4 Abnormal weight loss; Z68.1 Body mass index [BMI] 19.9 or less, adult; I51.7 Cardiomegaly; R59.0 Localized enlarged lymph nodes | CPT/HCPCS: 71046; 99204 ==

== ENCOUNTER → 2022-09-11 14:53 | Outpatient (BNVA) | payer MEDICARE, SELFPAY | PROVIDERS: PCP Registered Nurse; Visit Provider Registered Nurse | DX: R59.0 Localized enlarged lymph nodes (principal); E03.9 Hypothyroidism, unspecified | CPT/HCPCS: 84443; 85025 ==

== ENCOUNTER → 2022-09-20 12:01 | Outpatient (BNVA) | payer MEDICARE, SELFPAY | PROVIDERS: PCP Registered Nurse; Visit Provider Internal Medicine Pulmonary Disease | DX: D64.9 Anemia, unspecified (principal); J94.8 Other specified pleural conditions; R91.1 Solitary pulmonary nodule; R63.4 Abnormal weight loss; Z68.1 Body mass index [BMI] 19.9 or less, adult; I51.7 Cardiomegaly; R59.9 Enlarged lymph nodes, unspecified | CPT/HCPCS: 36415; 85025; 99214 ==

== ENCOUNTER → 2022-09-28 08:06 | Outpatient (BNVA) | payer MEDICARE, SELFPAY | PROVIDERS: PCP Registered Nurse; Visit Provider Thoracic Surgery (Cardiothoracic Vascular Surgery) | DX: J94.8 Other specified pleural conditions (principal); R06.02 Shortness of breath; I51.7 Cardiomegaly; Q25.46 Tortuous aortic arch | CPT/HCPCS: 71046; 99203 ==

== ENCOUNTER 2022-10-31 06:51 | Outpatient (CLI) | payer MEDICARE, SELFPAY ==
--- NOTE | 2022-10-31 | ECG_ITS ---
[facility] Test Date: 2022-10-31 Pat Name: Humble Hewitt Department: Room: Gender: Male Life Skills Trainer: Pricilla Bhatia : 1940 Requested By: Kyara Morales Order Number: [id number] Vikas MD: Servando Bah M.D. Interpretive Statements NAME OF STUDY: LEXISCAN SESTAMIBI STRESS TEST INDICATION: [Shortness of Breath, ] Procedure: At the baseline, the blood pressure was 156/88 mmHg with a heart rate of 66 bpm. The electrocardiogram showed atrial fibrillation, normal axis with normal ST and T's. The Lexiscan was infused over a period of 20 seconds. A total of 0.4 mg of Lexiscan was infused. The stress phase was continued for a total of 5 minutes. Heart rate was at the end of stress phase was 71 bpm and a blood pressure of 146/73 mmHg. The EKG at the peak infusion revealed atrial fibrillation with no significant ST-T wave changes. Sestamibi was injected 20 seconds after the Lexiscan infusion. Blood pressure at the end of recovery phase was 139/83 mmHg with a heart rate of 89 bpm. Conclusion: 1. Normal EKG response to Lexiscan infusion 2. No Lexiscan induced chest pain or cardiac arrhythmia. 3. Normal blood pressure and heart rate response. 4. Sestamibi/sestamibi perfusion scan pending; see separate report. Electronically Signed On 11-19-2022 13:19:54 FUEL EFFICIENT AUTOMOBILE DESIGNER by Servando Bah M.D. [id number]
[2022-10-31 06:58] VITALS: BMI 19.5
--- NOTE | 2022-10-31 06:59 | NMCV_ITS ---
NM yadiel perf SPECT r/s* [id number] Humble Hewitt Age: 81 Gender: M : 1940 Exam Date: 10/31/2022 08:00 Ordering Phys: Kyara Morales Technologist: KANDI Gillespie Exam Location: [facility] Indications: SHORTNESS OF BREATH AND A FIB STRESS TEST Please see separate stress test report in [facility] for full findings IMAGE PROTOCOL Rest/Stress 1 Lexiscan Day Radiopharmaceutical Dose (mCi) Administration Site Administered by Rest: Tc-99m 10.6 IV KANDI [place] Sestamibi Stress:Tc-99m 32.8 IV KANDI [place] Sestamibi Rest: 31-Oct-2022 60 Discovery 630 Stress: 31-Oct-2022 30 Discovery 630 0.4mg Lexiscan. Images obtained in supine and prone position. SPECT RESULTS Technical Quality: Excellent Raw Data Analysis: Normal Image Corrections: No attenuation or motion correction applied Summed Stress Score: 0 Summed Rest Score: 1 Summed Difference Score: 0 PERFUSION FINDINGS SPECT images demonstrate homogeneous tracer distribution throughout the myocardium. FUNCTIONAL RESULTS (calculated via Gated SPECT) Stress Image LV EF (%): 65 Stress EDV (mL):123 TID: 1.03 Stress ESV (mL):43 FUNCTIONAL FINDINGS: There is normal left ventricular systolic function. IMPRESSIONS 1. Normal myocardial perfusion imaging with no evidence of ischemia 2. LV systolic function is normal Servando Bah MD (Electronically Signed) Final Date: 31 October 2022 16:41 S
[2022-10-31] MEDS: regadenoson 0.4 Mg/5 ml Syringe IVP (08:30)
[2022-10-31 08:45] VITALS: BP 139/83; PULSE 72
== END 2022-10-31 06:52 | disposition home or self-care (01) ==
LOC: CDL 06:53
PROVIDERS: PCP Registered Nurse; Visit Provider Nurse Practitioner Family
DX: R07.9 Chest pain, unspecified (principal); R06.02 Shortness of breath; I48.91 Unspecified atrial fibrillation
CPT/HCPCS: 36415; 78452; 93017; 96374; A9500; J2785

== ENCOUNTER → 2022-12-14 09:49 | Outpatient (BNVA) | payer MEDICARE, SELFPAY | PROVIDERS: PCP Registered Nurse; Visit Provider Registered Nurse | DX: E07.9 Disorder of thyroid, unspecified (principal); E03.9 Hypothyroidism, unspecified | CPT/HCPCS: 84443 ==

== ENCOUNTER → 2022-12-22 13:45 | Outpatient (BNVA) | payer MEDICARE, SELFPAY | PROVIDERS: PCP Registered Nurse; Visit Provider Internal Medicine Pulmonary Disease | DX: J90 Pleural effusion, not elsewhere classified (principal); J94.8 Other specified pleural conditions; R63.4 Abnormal weight loss; Z68.20 Body mass index [BMI] 20.0-20.9, adult; I51.7 Cardiomegaly; R91.1 Solitary pulmonary nodule; D64.9 Anemia, unspecified; R59.0 Localized enlarged lymph nodes | CPT/HCPCS: 71046; 99214 ==

== ENCOUNTER → 2023-01-05 08:16 | Outpatient (BNVA) | payer MEDICARE, SELFPAY | PROVIDERS: PCP Registered Nurse; Visit Provider Internal Medicine | DX: I48.91 Unspecified atrial fibrillation (principal); Z79.01 Long term (current) use of anticoagulants | CPT/HCPCS: 99214 ==

== ENCOUNTER 2023-04-25 16:57 | Emergency (ER) | payer MEDICARE, SELFPAY ==
[2023-04-25] VITALS (7 sets, daily range): BP systolic 101–120; BP diastolic 71–91; PULSE 60–99; RESP 16–19; TEMP 36.5; O2SAT 90–95; BMI 16.7
--- NOTE | 2023-04-25 18:23 | ECG_ITS ---
[facility] Test Date: 2023-04-25 Pat Name: Humble Hewitt Department: Room: Gender: Male Community Aide: : 1940 Requested By: Rakan Oneal Order Number: [id number] Bean MD: Adela Boyle M.D. Measurements Intervals [place] Rate: 95 P: 0 [place]: 0 QRS: 43 QRSD: 97 T: -24 QT: 348 QTc: 438 Interpretive Statements ATRIAL FIBRILLATION SEPTAL MYOCARDIAL INFARCTION , PROBABLY OLD [40+ ms Q WAVE IN V1/V2] Compared to ECG 12/26/2021 08:50:49 No significant changes Electronically Signed On 04-26-2023 7:22:24 CDT by Adela Boyle M.D. [id number]
--- NOTE | 2023-04-25 18:40 | CTR_ITS ---
PROCEDURE INFORMATION: Exam: CT Chest With Contrast; Diagnostic Exam date and time: 04/25/2023 8:09 PM Age: 82 years old Clinical indication: Other: General weakness/weight loss; Prior surgery; Surgery date: 6+ months; Surgery type: Bilat inguinal hernia. Umbilical hernia; Patient HX: Worsening general weakness and uncontrolled weight loss. Indwelling catheter in place for recent RT hemothorax. ; Additional info: Weight loss and weakness with right sided hemothorax TECHNIQUE: Imaging protocol: Diagnostic computed tomography of the chest with contrast. Radiation optimization: All CT scans at this facility use at least one of these dose optimization techniques: automated exposure control; mA and/or kV adjustment per patient size (includes targeted exams where dose is matched to clinical indication); or iterative reconstruction. Contrast material: OMNI 350; Contrast volume: 75 ml; Contrast route: INTRAVENOUS (IV); REPORTING DATA: Count of CT and Cardiac NM exams in prior 12 months: This patient has received 3 known CTs and 0 known cardiac nuclear medicine studies in the 12 months prior to the current study. COMPARISON: [place] [id number] 08/08/2022 3:06 PM RADIATION DOSE METRICS: Total DLP (mGy-cm): 488.25 FINDINGS: Tubes, catheters and devices: Interval appearance of right chest tube in the right lung base. Lungs: 5.6 cm peripheral rounded atelectasis in the posterolateral left lung. Small right basilar pleural fluid collection some air bubbles within the pleural fluid. Right basilar and posterior basilar peripheral atelectasis or scarring with some short air bronchograms, best noted on the sagittal images. Pleural spaces: Mild to moderate left pleural fluid collection. Interval appearance of 25% right anterior apical pneumothorax. Heart: Unremarkable. No cardiomegaly. No pericardial effusion. Coronary arteries: Severe calcified coronary artery disease. Lymph nodes: Unremarkable. No enlarged lymph nodes. Vasculature: Direct origin of the left vertebral artery from the aortic arch which is a normal variant seen in 1% of the population. Bones/joints: Possible ankylosing spondylitis with bridging lateral vertebral body ossifications and ossification of the supraspinous ligament. Dextroscoliosis. Soft tissues: Unremarkable. PROCEDURE INFORMATION: Exam: CT Abdomen And Pelvis With Contrast Exam date and time: 04/25/2023 8:09 PM Age: 82 years old Clinical indication: Other: General weakness/weight loss; Prior surgery; Surgery date: 6+ months; Surgery type: Bilat inguinal hernia. Umbilical hernia; Patient HX: Worsening general weakness and uncontrolled weight loss. Indwelling catheter in place for recent RT hemothorax. ; Additional info: Weight loss and weakness with right sided hemothorax TECHNIQUE: Imaging protocol: Computed tomography of the abdomen and pelvis with contrast. Radiation optimization: All CT scans at this facility use at least one of these dose optimization techniques: automated exposure control; mA and/or kV adjustment per patient size (includes targeted exams where dose is matched to clinical indication); or iterative reconstruction. Contrast material: OMNI 350; Contrast volume: 75 ml; Contrast route: INTRAVENOUS (IV); REPORTING DATA: Count of CT and Cardiac NM exams in prior 12 months: This patient has received 3 known CTs and 0 known cardiac nuclear medicine studies in the 12 months prior to the current study. COMPARISON: [place] [id number] 08/08/2022 3:06 PM RADIATION DOSE METRICS: Total DLP (mGy-cm): 488.25 FINDINGS: Liver: Normal. No mass. Gallbladder and bile ducts: Normal. No calcified stones. No ductal dilation. Pancreas: Normal. No ductal dilation. Spleen: Normal. No splenomegaly. Adrenal glands: Normal. No mass. Kidneys and ureters: One or more focal cortical defects in the right kidney, representing sequela from previous infection or infarction. Stomach and bowel: Mild to moderate bowel wall thickening in the distal ileum suggesting infectious enteritis versus inflammatory bowel disease versus microvascular colitis. Appendix: No evidence of appendicitis. Intraperitoneal space: Unremarkable. No free air. No significant fluid collection. Vasculature: Calcification of the abdominal aorta and/or iliac arteries consistent with atherosclerotic vessel disease. Lymph nodes: Unremarkable. No enlarged lymph nodes. Urinary bladder: Unremarkable as visualized. Reproductive: Unremarkable as visualized. Bones/joints: Severe bilateral L4-L5 facet hypertrophy and degenerative change. Soft tissues: Unremarkable. CT/CT chest abdpel w/*[id number] IMPRESSION: 1. Mild to moderate left pleural fluid collection. 2. Interval appearance of right chest tube in the right lung base. 3. Interval appearance of 25% right anterior apical pneumothorax. 4. Small right basilar pleural fluid collection some air bubbles within the pleural fluid. 5. Right basilar and posterior basilar peripheral atelectasis or scarring with some short air bronchograms, best noted on the sagittal images. IMPRESSION: Mild to moderate bowel wall thickening in the distal ileum suggesting infectious enteritis versus inflammatory bowel disease versus microvascular colitis.
--- NOTE | 2023-04-25 18:43 | W.ED.WEAKNES ---
HPI - Weakness General: Chief complaint: Weakness Stated complaint: SOB, Low O2 Time Seen by Provider: 04/25/23 18:24 Source: patient and family Mode of arrival: ambulatory Limitations: no limitations History of Present Illness: Patient comes to our emergency department accompanied by his family. They bring him here because he is increasingly weaker. He apparently has had approximately 120 pound weight loss over the past year. He apparently had a procedure done at [facility] earlier this spring and has an indwelling catheter in his right chest for which she is receiving drainage. reports that he seems weaker than usual. He denies any pain at this time. He states he is not any fevers. He states that he has not been told he has cancer. Denies any history of cardiopulmonary disease. He has had a prior hernia repairs as his only prior surgery. He states that he seems more short of breath at times. MD Complaint: generalized weakness Associated symptoms: Reports no associated symptoms; Denies chills, melena, dysuria, easy bruising, fever(s), headache(s), nausea or vomiting Review of Systems Const: Reports: change in appetite, change in weight, fatigue and malaise; Denies: fever(s) or chills Eyes: Denies: change in vision ENMT: Denies: throat pain, nasal discharge or nasal congestion Card: Reports: dyspnea on exertion; Denies: palpitations or irregular heart rhythm Resp: Reports: dyspnea; Denies: productive cough, non-productive cough, wheezing or stridor GI: Denies: abdominal pain, nausea, vomiting, hematemesis, diarrhea or melena : Denies: flank pain, difficulty urinating, dysuria or urinary frequency Musc: Denies: neck pain, back pain, extremity pain or extremity swelling Skin/Breast: Denies: rash Neuro: Denies: headache(s), numbness in extremities or weakness in extremities Rufino/Lymph: Denies: easy bruising, easy bleeding or petechiae PFSH ED PFSH: Medical History Atrial fibrillation with slow ventricular response B12 deficiency Bilateral inguinal hernia Umbilical hernia Surgical History H/O esophagogastroduodenoscopy History of colonoscopy 2016 History of umbilical hernia repair (01/23/22) S/P bilateral inguinal hernia repair (01/23/22) Laparoscopic Family History Other Cancer Social History Smoking and tobacco status: never smoked Second hand smoke exposure: No Alcohol intake: never Substance/Drug Use: never Physical Exam Narrative: EXAM NARRATIVE: Thin appearing gentleman who answers questions readily with a fluent and goal-directed voice. Const: COMMON NORMALS: alert GENERAL APPEARANCE: cooperative NUTRITIONAL APPEARANCE: thin and underweight ORIENTATION/CONSCIOUSNESS: Yes awake HENMT: COMMON NORMALS: normocephalic, Normal nasal mucous membranes and turbinates present, moist oral mucous membranes and oropharynx normal HEAD & SCALP: normocephalic and other (Temporal wasting) NOSE: Normal nasal mucous membranes and turbinates present Eye: COMMON NORMALS: Equal, round and reactive pupils present, EOMs intact bilaterally and no scleral icterus PUPIL: Yes Equal, round and reactive pupils present Neck/C-Spine: COMMON NORMALS: full ROM, no lymphadenopathy, no JVD, Thyroid normal and No carotid bruits THYROID: Thyroid normal Chest: COMMONS NORMALS: normal inspection of the chest (He has a dressing in the inferior anterior axillary location of his right c) Resp: COMMON NORMALS: normal respiratory effort EFFORT & INSPECTION: Yes symmetric chest movement AUSCULTATION: diminished lung sounds on the right Cardio: COMMON NORMALS: no JVD, regular rate, regular rhythm, No murmurs present (Cardio) and Peripheral pulses 2+ throughout RATE: regular rate RHYTHM: regular rhythm PERIPHERAL PULSES: Peripheral pulses 2+ throughout GI: COMMON NORMALS: Normal to inspection, nondistended, normoactive bowel sounds present, Soft to palpation, non-tender and no masses PALPATION: Yes Soft to palpation : COMMON NORMALS: Yes no CVA tenderness BLADDER/KIDNEY EXAM: Yes no CVA tenderness Back/Pelvis: COMMON NORMALS: no CVA tenderness, thoracic and lumbar spine normal to inspection, no thoracic nor lumbar tenderness, thoraco-lumbar ROM normal and straight leg raise negative bilaterally Extremity: COMMON NORMALS: normal to inspection, full ROM, capillary refill normal, no calf tenderness and no pedal edema Neuro: COMMON NORMALS: moves all extremities, no focal motor deficits and no sensory deficits noted SENSORIUM/ORIENTATION: Yes alert CRANIAL NERVES: Yes CN normal except as noted Psych: COMMON NORMALS: mental status grossly normal Skin: COMMON NORMALS: no rashes or lesions noted, no wounds and no jaundice GENERAL SKIN EXAM: no rashes or lesions noted Course Reevaluation(s): Reevaluation #1: Patient remained clinically stable with no evidence of hypoxia hypotension or tachycardia. I spent some time discussing current findings in detail with the patient and family. Also discussed the weight loss issue which appears to be chronic and initially as a result of dental problems and subsequently has become an ongoing issue where he develops a lack of desire to eat, early satiety etc. Strongly encouraged him to continue his efforts to add higher calories and protein shakes to his diet and attempt to stem his weight loss. All questions were answered and patient and spouse were appreciative of care efforts. Time: 22:14 Consultations: Consultation #1: Is able to discuss case with Dr. Jake Bañuelos cardiothoracic surgeon for [facility]. 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 Time: 22:12 Vital Signs: Vital signs: Vital Signs Temperature 97.7 F 04/25/23 17:07 Pulse Rate 93 04/25/23 18:33 Respiratory Rate 19 H 04/25/23 21:00 Blood Pressure 120/81 04/25/23 21:00 Pulse Oximetry 94 04/25/23 21:00 Oxygen Delivery Me thod Room Air 04/25/23 21:00 MDM - Weakness Medical Decision Making This patient presented to our emergency department because of concerns about fatigue. The symptoms have been present for some time but subjectively he feels they have worsened. There has not he had no history of recent fevers, ongoing chest pain, cough etc. He has had a history of a recent VATS procedure at [facility] with a persistent pleural effusion with a draining catheter in his inferior chest which has been managed by home health. He is also had a weight loss of approximately 120 pounds over the last year or more. Evaluation included a clinical exam which revealed a thin gentleman who is alert and in no acute distress. He had diminished breath sounds on the right lung but the left lung was clear. His had a normal heart rate and appeared to be in atrial fibrillation rhythm on monitor. Work-up ensued to include a CT to evaluate for any chest abdominal pathology that might be contributing to his presentation. EKG revealed a controlled ventricular rate with his atrial fibrillation without any acute ischemic changes. He has ancillary studies did not reveal any significant anemia. He did have evidence of volume depletion. He did receive IV hydration while in the emergency department. CT scan revealed persistent right pleural effusion with and apical pneumothorax. I was able to logon and evaluate his care at [facility] and it was noted that he had a apical pneumothorax with a pleural effusion in February. 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 I also discussed with cardiothoracic surgeon at [facility] who voiced understanding of the information provided to him and did not feel that any additional intervention acutely needed to occur. She is currently stable and suitable to be discharged with follow-up with pulmonology here. We also discussed his eating issue and given his CT scan results 1 wonders if some of this is related to a lack of desire to eat given no obvious other pathology on his recent CT scans but additional follow-up and evaluation is certainly important and this was emphasized to the patient and family. Medical Records I reviewed the patient's medical records. I was able to view patient's records from our system as well as from [facility]. Prior records from [facility] revealed that he had a VATS procedure in February and subsequently on follow-up he has had a persistent right apical pneumothorax with a right pleural effusion. Lab Data I reviewed the patient's lab results. 04/25/23 19:15 04/25/23 19:15 Radiology Impressions Chest/Abdomen/Pelvis CT 04/25/23 18:40 IMPRESSION: 1. Mild to moderate left pleural fluid collection. 2. Interval appearance of right chest tube in the right lung base. 3. Interval appearance of 25% right anterior apical pneumothorax. 4. Small right basilar pleural fluid collection some air bubbles within the pleural fluid. 5. Right basilar and posterior basilar peripheral atelectasis or scarring with some short air bronchograms, best noted on the sagittal images. IMPRESSION: Mild to moderate bowel wall thickening in the distal ileum suggesting infectious enteritis versus inflammatory bowel disease versus microvascular colitis. ADDENDUM: 04/25/23 3234 History: Treated at another facility. The patient is new to this facility. THIS REPORT CONTAINS FINDINGS THAT MAY BE CRITICAL TO PATIENT CARE. The findings were verbally communicated via telephone conference with FABIAN BOWER at 9:01 PM CDT on 04/25/2023. The findings were acknowledged and understood. Laboratory Results WBC 4.4 10^3/uL (4.0-10.0) 04/25/23 19:15 RBC 4.07 10^6/uL (4.1-5.3) L 04/25/23 19:15 Hgb 12.0 g/dL (11.7-16.6) 04/25/23 19:15 Hct 39.6 % (42.0-52.0) L 04/25/23 19:15 MCV 97.3 fl (80-94) H 04/25/23 19:15 MCH 29.5 pg (28.0-34.0) 04/25/23 19:15 MCHC 30.3 g/dL (30.0-36.0) 04/25/23 19:15 RDW 15.4 % (12.1-15.1) H 04/25/23 19:15 Plt Count 241 10^3/cmm (130-400) 04/25/23 19:15 MPV 9.7 fL (7.4-10.4) 04/25/23 19:15 Neut % (Auto) 74.4 % 04/25/23 19:15 Lymph % (Auto) 9.6 % 04/25/23 19:15 [place] % (Auto) 14.4 % 04/25/23 19:15 Eos % (Auto) 0.2 % 04/25/23 19:15 Baso % (Auto) 0.7 % 04/25/23 19:15 Neut # (Auto) 3.24 10^3/uL (1.8-7.7) 04/25/23 19:15 Lymph # (Auto) 0.4 10^3/uL (0.8-4.8) L 04/25/23 19:15 [place] # (Auto) 0.6 10^3/uL (0.2-0.9) 04/25/23 19:15 Eos # (Auto) 0.0 10^3/uL (0.0-0.8) 04/25/23 19:15 Baso # (Auto) 0.0 10^3/uL (0.0-0.1) 04/25/23 19:15 Nucleated RBC % (auto) 0 % 04/25/23 19:15 Nucleated RBCs # 0.0 /100WBC 04/25/23 19:15 Sodium 141 mmol/L (136-145) 04/25/23 19:15 Potassium 5.2 mmol/L (3.5-5.1) H 04/25/23 19:15 Chloride 102 mmol/L (98-107) 04/25/23 19:15 Carbon Dioxide 34 mmol/L (22-29) H 04/25/23 19:15 Anion Gap 10.2 (5-19) 04/25/23 19:15 BUN 25 mg/dL (8-23) H 04/25/23 19:15 Creatinine 1.3 mg/dL (0.7-1.2) H 04/25/23 19:15 GFR Calculation Not Reportable 04/25/23 19:15 Glucose 101 mg/dL (65-115) 04/25/23 19:15 Calculated Osmolality 297 mOsm/kg (285-295) H 04/25/23 19:15 Calcium 8.5 mg/dL (8.5-10.5) 04/25/23 19:15 Total Bilirubin 0.3 mg/dL (0.15-1.2) 04/25/23 19:15 AST 12 U/L (0-40) 04/25/23 19:15 ALT 11 U/L (0-41) 04/25/23 19:15 Alkaline Phosphatase 59 U/L (40-130) 04/25/23 19:15 Total Protein 6.4 g/dL (6.6-8.7) L 04/25/23 19:15 Albumin 2.9 g/dL (3.5-5.2) L 04/25/23 19:15 Globulin 3.5 g/dL (1.3-4.6) 04/25/23 19:15 EKG Data EKG 1: I personally reviewed and interpreted this EKG as follows: Interpretation: Contemporaneous review of EKG reveals a ventricular rate of 95 bpm. Underlying rhythm appears to be consistent with atrial fibrillation. QRS duration is normal. Corrected QT intervals normal. Is normal axis and no evidence of acute ST-T wave changes at this time. Consistent with prior rhythms within the system. Discharge Plan Discharge Patient Disposition: Home Clinical Impression: Pleural effusion, Trapped lung, Atrial fibrillation, chronic Condition: Stable Prescriptions: No Action ferrous sulfate [FeroSul] 325 mg (65 mg iron) tablet 325 mg PO DAILY cholecalciferol (vitamin D3) 1,250 mcg (50,000 unit) capsule 50,000 unit PO .once a week 90 Days Qty: 12 3RF furosemide 40 mg tablet 60 mg PO DAILY potassium chloride 10 mEq tablet extended release 10 meq PO DAILY vitamin B complex [B Complex-Vitamin B12] Tablet 1 tab PO DAILY 90 Days Qty: 90 0RF levothyroxine 50 mcg capsule 50 mcg PO DAILY 90 Days Qty: 90 0RF Colace 100 mg capsule 100 mg PO DAILY Eliquis 5 mg tablet 5 mg PO DAILY Patient Comments: PT HAS NOT STARTED TAKING THIS MEDICATION Discharge Orders: Discharge ED (Routine); Ordered 04/25/23 Ordered By: Fabian Bower Referrals: Jaja Villafana, [facility] [Primary Care Provider] - Discharge Diet: Advance as tolerated Discharge Activity: Increase activity as tolerated Patient Instructions: Opioid Safety, Pain Management Activity Restrictions/Additional Instructions: As we discussed 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 We have placed a social worker palliative care consult in to have Dr. Parish see you in follow-up and continue relationship with him. We encourage you to drink at least 2 quarts of water daily in addition to your other fluids. We also encourage you to drink protein drinks with each meal. If you develop fever or other concerning symptoms return to this or the nearest emergency department. Continue all your other prescribed medications. Coding Level of Care Code ED Polygraph Examiner for Miensh Mehta
[2023-04-25 19:22] LABS: Basophils % 0.7 %; Eosinophils % 0.2 %; Hematocrit 39.6 % (42.0-52.0); Lymphocytes # 0.4 10^3/uL (0.8-4.8); Lymphocytes % 9.6 %; Mean Corpuscular HGB Conc 30.3 g/dL (30.0-36.0); Mean Corpuscular Hemoglobin 29.5 pg (28.0-34.0); Mean Corpuscular Volume 97.3 fl (80-94); Mean Platelet Volume 9.7 fL (7.4-10.4); Monocytes # 0.6 10^3/uL (0.2-0.9); Monocytes % 14.4 %; Neutrophils # 3.24 10^3/uL (1.8-7.7); Neutrophils % 74.4 %; Nucleated Red Blood Cells % 0 %; Platelet Count 241 10^3/cmm (130-400); Red Blood Count 4.07 10^6/uL (4.1-5.3); Red Cell Distribution Width 15.4 % (12.1-15.1); White Blood Count 4.4 10^3/uL (4.0-10.0)
[2023-04-25 19:41] LABS: Alanine Aminotransferase 11 U/L (0-41); Albumin Level 2.9 g/dL (3.5-5.2); Alkaline Phosphatase 59 U/L (40-130); Anion Gap 10.2 (5-19); Aspartate Amino Transferase 12 U/L (0-40); Blood Urea Nitrogen 25 mg/dL (8-23); Calcium 8.5 mg/dL (8.5-10.5); Carbon Dioxide 34 mmol/L (22-29); Chloride 102 mmol/L (98-107); Glucose 101 mg/dL (65-115); Osmolality Calculated 297 mOsm/kg (285-295); Potassium 5.2 mmol/L (3.5-5.1); Sodium 141 mmol/L (136-145); Total Bilirubin 0.3 mg/dL (0.15-1.2)
[2023-04-25] MEDS: sodium chloride 0.9% 1,000 ML 999 ML IV (20:06)
[2023-04-25] MEDS: iohexol 350 mg/mL 500 mL Btl (per mL) IV (20:09)
[2023-04-25 20:58] LABS: Globulin 3.5 g/dL (1.3-4.6); Total Protein 6.4 g/dL (6.6-8.7)
--- NOTE | 2023-04-26 07:35 | DCPLANNER ---
Addendum entered by Rebecca Daly 07/05/23 12:28: This appointment was cancelled - patient Addendum entered by Rebecca Daly 05/08/23 10:46: Patient has a follow up appointment scheduled for , June 21, 2023 at 10:[address] Marroquin at [facility]. Addendum entered by Rebecca Daly 05/01/23 09:48: experimental machining lab manager received the following message from pulomonology regarding follow up appointment: Dr. Lazo is not in office at this time. He will be back on 05/07 we will have him review when he comes back. Original Note: experimental machining lab manager had message to schedule a follow up appointment for patient with pulomonology. experimental machining lab manager sent patients information to the front office staff at [facility]. Patients information will be printed and reviewed. Clinic will call patient with appointment information.
== END 2023-04-25 22:31 | disposition home or self-care (01) ==
PROVIDERS: Emergency Provider Emergency Medicine; PCP Registered Nurse
DX: J90 Pleural effusion, not elsewhere classified (principal); J98.19 Other pulmonary collapse; I48.20 Chronic atrial fibrillation, unspecified; Z79.01 Long term (current) use of anticoagulants
CPT/HCPCS: 36415; 71260; 74177; 80053; 85025; 93005; 99285; J7030; Q9967